=== PATIENT | female | born 1935 | race Caucasian/White ===

== ENCOUNTER 2016-09-14 10:26 | Emergency (ER) | payer MEDICARE, OTHER ==
[2016-09-14] MEDS ORDERED: Sodium Chloride 0.9% 10 ML Syringe FLUSH PRN (10:38)
--- NOTE | 2016-09-14 11:06 | EDM.PDOC ---
ED HPI NEURO - General Chief Complaint: Neurological Problem Stated Complaint: STROKE Time Seen by Provider: 09/14/16 10:42 Source: Reports: Patient, EMS History Limitations: Reports: No limitations - History of Present Illness INITIAL COMMENTS - FREE TEXT/NARRATIVE: 81 years old w f with a history of HTN came to the ed due to 5 min loss of vision of the r side of her left eye. Pt does not smoke or drink, takes ASA daily. Event was not witnessed. No headache, no N/V/D or any other acute medical issues at this time. Symptom Onset Date: 09/14/16 Symptom Onset Time: 09:30 Timing/Duration: Reports: Hour(s): Location (Neuro Complaint): Reports: face Quality (Neuro Complaint): Reports: altered speech, other (loss of vision right side left eye. ) Improves with: Reports: None Worsens with: Reports: None Associated symptoms: Reports: denies other symptoms - Related Data Allergies/ADRs: Allergies Allergy/AdvReac Type Severity Reaction Status Date / Time erythromycin base Allergy Cannot Verified 09/14/16 10:38 Remember venom-honey bee Allergy Cannot Verified 09/14/16 10:38 [bee venom (honey bee)] Remember Home Meds: Home Meds Lisinopril/Hydrochlorothiazide [Lisinopril-Hctz 20-12.5 mg Tab] 1 tab PO DAILY 10/11/14 [History] Metoprolol Tartrate [Lopressor] 12.5 mg PO BID 10/11/14 [History] Aspirin 325 mg PO DAILY 10/31/15 [History] Calcium Carbonate/Vitamin D3 [Calcium 600 + Vit D 200] 1 each PO DAILY 10/31/15 [History] Cholecalciferol (Vitamin D3) [Vitamin D3] 400 unit PO DAILY 10/31/15 [History] Folic Acid 1 mg PO DAILY 10/31/15 [History] Gluc HCl/Csa/[place] Hy/Hyalur Ac [Glucosamine Chondroitin] 1 each PO DAILY [History] Vit C/Vit E Ac/Lut/Mineral 1 [Prosight with Lutein] 1 each PO DAILY 10/31/15 [ History] Zinc 50 mg PO DAILY 10/31/15 [History] Ascorbate Calcium [Vitamin C] 500 mg PO DAILY 09/14/16 [History] Docusate Sodium [Colace] 100 mg PO BID 09/14/16 [History] Gabapentin [Neurontin] 100 mg PO BID 09/14/16 [History] methylPREDNISolone [Medrol] 4 mg PO ASDIRECTED 09/14/16 [History] Past Medical History HEENT History: Reports: Impaired vision Cardiovascular History: Reports: Hypertension 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: Musculoskeletal History: Reports: Other (see below) Other Musculoskeletal History: spinal stenosis Social & Family History - Tobacco Use Smoking Status *Q: Former Smoker Second Hand Smoke Exposure: No - Caffeine Use Caffeine Use: Reports: None - Alcohol Use Days Per Week of Alcohol Use: 1 Number of Drinks Per Day: 1 Total Drinks Per Week: 1 - Recreational Drug Use Recreational Drug Use: No ED ROS GENERAL - Review of Systems Review Of Systems: See Below Constitutional: Reports: no symptoms HEENT: Reports: Vision change (left eye for 5 minutes) Respiratory: Reports: No Symptoms Cardiovascular: Reports: No symptoms Endocrine: Reports: no symptoms GI/Abdominal: Reports: No symptoms : Reports: no symptoms Musculoskeletal: Reports: no symptoms Skin: Reports: no symptoms Neurological: Reports: Trouble Speaking (for 5 minutes) Psychiatric: Reports: No symptoms Hematologic/Lymphatic: Reports: no symptoms Immunologic: Reports: no symptoms ED EXAM, NEURO - Physical Exam Exam: See Below Exam Limited By: No limitations General Appearance: alert, WD/WN, no apparent distress Eye Exam: bilateral eye: normal fundi, normal inspection Ears: normal external exam Nose: normal inspection, normal mucosa Throat/Mouth: Normal inspection, Normal lips Head Exam: atraumatic, normocephalic Neck: normal inspection, supple, non-tender Respiratory/Chest: no respiratory distress, lungs clear, normal breath sounds Cardiovascular: normal peripheral pulses, regular rate, rhythm, no edema, no gallop GI/Abdominal: normal bowel sounds, soft, non tender (Female) Exam: Deferred Rectal (Female) Exam: Deferred Neurological: alert, normal mood/affect, normal dorsiflexion, CN II-XII intact, normal plantar flexion, normal gait, no motor/sensory deficits, oriented x 3 Back Exam: normal inspection, full range of motion Extremities: normal inspection, normal range of motion, non-tender, no pedal edema Psychiatric: normal affect, normal mood Skin Exam: Warm, Dry, Intact, Normal color, No rash EKG INTERPRETATION EKG Date: 09/14/16 Time: 10:55 Rate (beats/min): 60 [place]: normal P-wave: present QRS: normal ST-T: normal QT: normal Comparison: NA - no prior EKG Course - Vital Signs Text/Narrative:: 81 years old w f with a history of HTN came to the ed due to 5 min loss of vision of the r side of her left eye. Pt does not smoke or drink, takes ASA daily. Event was not witnessed. No headache, no N/V/D or any other acute medical issues at this time. PE: no neurological symptoms Imaging: US carotis (no tech available) CT head: Gen brain atrophy MR linda and neck: neg for CVA, poor study of MRA neck, recommends Carotic US Labs: CBC wnl, BMP: CD 22 KAVON/CR 21,4 Glc 158 INR: NL Impression: TIA Reexam: Pt was doing fine here in the ed, was in her usual state of health Plan: D/C with instructions Last Recorded V/S: Last Vital Signs Temp 36.6 C 09/14/16 16:54 Pulse 76 09/14/16 15:00 Resp 16 09/14/16 16:54 BP 154/48 H 09/14/16 16:54 Pulse Ox 97 09/14/16 16:54 - Orders/Labs/Meds Orders: Active Orders 24 hr Category Date Time Status Ang Neck w Cont [MR] Stat Exams 09/14/16 11:42 Taken Brain w wo Cont [MR] Stat Exams 09/14/16 11:42 Taken Head wo Cont [CT] Stat Exams 09/14/16 10:46 Taken Gadobutrol [Gadavist] Med 09/14/16 13:15 Active 10 ml IV . DIRECTED Sodium Chloride 0.9% [Saline Flush] Med 09/14/16 10:38 Active 10 ml FLUSH ASDIRECTED PRN Saline Lock Insert [OM.PC] Routine Oth 09/14/16 10:38 Ordered EKG 12 Lead [EK] Routine Ther 09/14/16 10:47 Ordered Medication Orders Gadobutrol (Gadavist) 10 ml IV . DIRECTED NAKIA Last Admin: 09/14/16 14:22 Dose: 10 ml Sodium Chloride (Saline Flush) 10 ml FLUSH ASDIRECTED PRN PRN Reason: Keep Vein Open Last Admin: 09/14/16 10:39 Dose: 10 ml Labs: Laboratory Tests 09/14/16 09/14/16 09/14/16 Range/Units 10:55 10:55 10:55 WBC 7.9 (4.5-12.0) X10-3/uL RBC 4.35 (3.23-5.20) x10(6)uL Hgb 12.6 (11.5-15.5) g/dL Hct 38.3 (30.0-51.3) % MCV 88.0 (80-96) fL MCH 28.9 (27.7-33.6) pg MCHC 32.9 (32.2-35.4) g/dL RDW 13.9 (11.5-15.5) % Plt Count 223 (125-369) X10(3)uL MPV 9.8 (7.4-10.4) fL Neut % (Auto) 70.7 (46-82) % Lymph % (Auto) 18.7 (13-37) % [place] % (Auto) 7.0 (4-12) % Eos % (Auto) 3 (1.0-5.0) % Baso % (Auto) 1 (0-2) % Neut # (Auto) 5.6 (1.6-8.3) # Lymph # (Auto) 1.5 (0.6-5.0) # [place] # (Auto) 0.6 (0.0-1.3) # Eos # (Auto) 0.2 (0.0-0.8) # Baso # (Auto) 0.0 (0.0-0.2) # PT 10.4 (8.7-11.1) INR 1.03 (0.89-1.13) Sodium 136 (135-145) mmol/L Potassium 3.8 (3.5-5.3) mmol/L Chloride 105 (100-110) mmol/L Carbon Dioxide 22 L (23-29) mmol/L BUN 19 (8-23) mg/dL Creatinine 0.9 (0.6-1.3) mg/dL Est Cr Clr Drug Dosing TNP Estimated GFR (MDRD) > 60 (>60) BUN/Creatinine Ratio 21.1 H (9-20) Glucose 158 H (80-116) mg/dL Calcium 9.0 (8.6-10.2) mg/dL Meds: Medications Generic Name Dose Route Start Last Admin Trade Name Freq PRN Reason Stop Dose Admin Gadobutrol 10 ml 09/14/16 13:15 09/14/16 14:22 Gadavist IV 10 ml . DIRECTED NAKIA Administration Sodium Chloride 10 ml 09/14/16 10:38 09/14/16 10:39 Saline Flush FLUSH 10 ml ASDIRECTED PRN Administration Keep Vein Open Departure - Departure Time of Disposition: 17:01 Disposition: Home, Self-Care 01 Condition: good Clinical Impression: TIA (transient ischemic attack) Qualifiers: Transient cerebral ischemia type: amaurosis fugax Qualified Code(s): G45.3 - Amaurosis fugax Forms: ED Department Discharge Additional Instructions: Please take your meds as recommended, please follow up with US at 11.30 am for a carotic US. Please follow up with your PMD, please come back of your symptoms get worse acutely - My Orders Last 24 Hours: My Active Orders 09/14/16 10:38 Sodium Chloride 0.9% [Saline Flush] 10 ml FLUSH ASDIRECTED PRN Saline Lock Insert [OM.PC] Routine 09/14/16 10:46 Head wo Cont [CT] Stat 09/14/16 10:47 EKG 12 Lead [EK] Routine 09/14/16 11:42 Ang Neck w Cont [MR] Stat Brain w wo Cont [MR] Stat 09/14/16 13:15 Gadobutrol [Gadavist] 10 ml IV . DIRECTED - Assessment/Plan Last 24 Hours: My Active Orders 09/14/16 10:38 Sodium Chloride 0.9% [Saline Flush] 10 ml FLUSH ASDIRECTED PRN Saline Lock Insert [OM.PC] Routine 09/14/16 10:46 Head wo Cont [CT] Stat 09/14/16 10:47 EKG 12 Lead [EK] Routine 09/14/16 11:42 Ang Neck w Cont [MR] Stat Brain w wo Cont [MR] Stat 09/14/16 13:15 Gadobutrol [Gadavist] 10 ml IV . DIRECTED
[2016-09-14] MEDS ORDERED: Gadobutrol 10 mMOL/10 ML SDV IV SCH (13:15)
[2016-09-14 16:55] VITALS: BP 154/48
== END 2016-09-14 17:09 | disposition home or self-care (01) ==
LOC: FB.ED 10:26
DX: G45.3 Amaurosis fugax (principal); I10 Essential (primary) hypertension; Z88.1 Allergy status to other antibiotic agents; Z91.030 Bee allergy status; Z79.82 Long term (current) use of aspirin; Z79.899 Other long term (current) drug therapy; Z87.891 Personal history of nicotine dependence
CPT/HCPCS: 36415; 70450; 70548; 70553; 80048; 85025; 85610; 93005; 99285; A9585; J7050

== ENCOUNTER 2016-11-13 08:16 | Emergency (ER) | payer MEDICARE ==
--- NOTE | 2016-11-13 09:30 | EDM.PDOC ---
ED HPI GENERAL MEDICAL PROBLEM - General Stated Complaint: LOWER LEFT QUAD PAIN Time Seen by Provider: 11/13/16 08:16 Source of Information: Reports: Patient History Limitations: Reports: No Limitations - History of Present Illness INITIAL COMMENTS - FREE TEXT/NARRATIVE: 81 years old w f came to the ed by PC due to acute onset of left lower abdominal pain. Pt had diverticulitis in the past. Denies dysuria. No trauma. No other acute medical issues. No blood in stool. Onset Date: 11/12/16 Onset Time: 06:00 Duration: Hour(s):, Getting Worse, Intermittent Location: Reports: Abdomen (LLQ ) Quality: Reports: Burning, Dull, Stabbing Severity: Moderate Improves with: Reports: Rest Worsens with: Reports: Movement - Related Data Allergies Allergy/AdvReac Type Severity Reaction Status Date / Time erythromycin base Allergy Cannot Verified 11/13/16 11:05 Remember venom-honey bee Allergy Cannot Verified 11/13/16 11:05 [bee venom (honey bee)] Remember Home Meds: Home Meds Ciprofloxacin HCl [Cipro] 500 mg PO BID #20 tablet 11/13/16 [Rx] Phenazopyridine HCl [Pyridium] 200 mg PO Q8HR #9 tablet 11/13/16 [Rx] metroNIDAZOLE [Flagyl] 500 mg PO Q8H #30 tab 11/13/16 [Rx] Past Medical History HEENT History: Reports: Impaired Vision Cardiovascular History: Reports: Hypertension 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: Musculoskeletal History: Reports: Other (See Below) Other Musculoskeletal History: spinal stenosis Social & Family History - Tobacco Use Smoking Status *Q: Former Smoker Second Hand Smoke Exposure: No - Caffeine Use Caffeine Use: Reports: None - Alcohol Use Days Per Week of Alcohol Use: 1 Number of Drinks Per Day: 1 Total Drinks Per Week: 1 - Recreational Drug Use Recreational Drug Use: No ED ROS GENERAL - Review of Systems Review Of Systems: See Below Constitutional: Reports: No Symptoms HEENT: Reports: No Symptoms Respiratory: Reports: No Symptoms Cardiovascular: Reports: No Symptoms Endocrine: Reports: No Symptoms GI/Abdominal: Reports: Abdominal Pain (left lower abdomen) : Reports: No Symptoms Musculoskeletal: Reports: No Symptoms Skin: Reports: No Symptoms Neurological: Reports: No Symptoms Psychiatric: Reports: No Symptoms Hematologic/Lymphatic: Reports: No Symptoms Immunologic: Reports: No Symptoms ED EXAM GENERAL W FULL EYE - Physical Exam Exam: See Below Exam Limited By: No Limitations General Appearance: Alert, WD/WN, Mild Distress, Obese Eye Exam: Bilateral Eye: Normal Inspection Ears: Normal External Exam Nose: Normal Inspection Throat/Mouth: Normal Inspection, Normal Lips Head: Atraumatic, Normocephalic Neck: Normal Inspection, Supple, Non-Tender, Full Range of Motion Respiratory/Chest: No Respiratory Distress, Lungs Clear, Normal Breath Sounds, No Accessory Muscle Use, Chest Non-Tender Cardiovascular: Normal Peripheral Pulses, Regular Rate, Rhythm, No Edema GI/Abdominal: Guarding, Rebound, Tender (LLQ of abdomen) (Male) Exam: Deferred (Female) Exam: Deferred Rectal (Males) Exam: Deferred Rectal (Female) Exam: Deferred Back Exam: Normal Inspection, Full Range of Motion Extremities: Normal Inspection, Normal Range of Motion, Non-Tender Neurological: Alert, Oriented, CN II-XII Intact, Normal Cognition, Normal Gait Psychiatric: Normal Affect, Normal Mood Skin Exam: Warm, Dry, Intact, Normal Color, No Rash Lymphatic: No Adenopathy Course - Vital Signs Text/Narrative:: 81 years old w f came to the ed by PC due to acute onset of left lower abdominal pain. Pt had diverticulitis in the past. Denies dysuria. No trauma. No other acute medical issues. PE; LLQ abd.pain Imaging: Diverticulitis LabsL UTI with hematuria Impression: UTI, Diverticulitis Tx: Pyridium, Abx Rexam: improved Plan: D/C with instructions Last Recorded V/S: Last Vital Signs Temp 36.7 C 11/13/16 08:20 Pulse 65 11/13/16 08:20 Resp 18 11/13/16 08:20 BP 118/45 L 11/13/16 08:20 Pulse Ox 94 L 11/13/16 08:20 - Orders/Labs/Meds Orders: Active Orders 24 hr Category Date Time Status Abdomen Pelvis w Cont [CT] Stat Exams 11/13/16 09:20 Taken Labs: Laboratory Tests 11/13/16 11/13/16 11/13/16 Range/Units 09:35 09:35 09:35 WBC 16.4 H (4.5-12.0) X10-3/uL RBC 4.30 (3.23-5.20) x10(6)uL Hgb 12.6 (11.5-15.5) g/dL Hct 37.7 (30.0-51.3) % MCV 87.7 (80-96) fL MCH 29.3 (27.7-33.6) pg MCHC 33.4 (32.2-35.4) g/dL RDW 12.8 (11.5-15.5) % Plt Count 256 (125-369) X10(3)uL MPV 9.7 (7.4-10.4) fL Add Manual Diff Yes Neutrophils % (Manual) 81 (46-82) % Lymphocytes % (Manual) 14 (13-37) % Monocytes % (Manual) 4 (4-12) % Eosinophils % (Manual) 1 (0-5) % PT 10.9 (8.7-11.1) INR 1.08 (0.89-1.13) Sodium 137 (135-145) mmol/L Potassium 3.9 (3.5-5.3) mmol/L Chloride 104 (100-110) mmol/L Carbon Dioxide 23 (23-29) mmol/L BUN 22 (8-23) mg/dL Creatinine 1.1 (0.6-1.3) mg/dL Est Cr Clr Drug Dosing TNP Estimated GFR (MDRD) 48 L (>60) BUN/Creatinine Ratio 20.0 (9-20) Glucose 180 H (80-116) mg/dL Calcium 9.3 (8.6-10.2) mg/dL Urine Color (YELLOW) Urine Appearance (CLEAR) Urine pH (5.0-6.5) Ur Specific [place] (1.010-1.025) Urine Protein (NEGATIVE) mg/dL Urine Glucose (UA) (NEGATIVE) mg/dL Urine Ketones (NEGATIVE) mg/dL Urine Occult Blood (NEGATIVE) Urine Nitrite (NEGATIVE) Urine Bilirubin (NEGATIVE) Urine Urobilinogen (NEGATIVE) mg/dL Ur Leukocyte Esterase (NEGATIVE) Urine WBC (0) Ur Squamous Epith Cells (NS,R,O) Urine Bacteria (NS) Hyaline Casts (NS) 11/13/16 Range/Units 09:45 WBC (4.5-12.0) X10-3/uL RBC (3.23-5.20) x10(6)uL Hgb (11.5-15.5) g/dL Hct (30.0-51.3) % MCV (80-96) fL MCH (27.7-33.6) pg MCHC (32.2-35.4) g/dL RDW (11.5-15.5) % Plt Count (125-369) X10(3)uL MPV (7.4-10.4) fL Add Manual Diff Neutrophils % (Manual) (46-82) % Lymphocytes % (Manual) (13-37) % Monocytes % (Manual) (4-12) % Eosinophils % (Manual) (0-5) % PT (8.7-11.1) INR (0.89-1.13) Sodium (135-145) mmol/L Potassium (3.5-5.3) mmol/L Chloride (100-110) mmol/L Carbon Dioxide (23-29) mmol/L BUN (8-23) mg/dL Creatinine (0.6-1.3) mg/dL Est Cr Clr Drug Dosing Estimated GFR (MDRD) (>60) BUN/Creatinine Ratio (9-20) Glucose (80-116) mg/dL Calcium (8.6-10.2) mg/dL Urine Color Yellow (YELLOW) Urine Appearance Slightly cloudy (CLEAR) Urine pH 5.0 (5.0-6.5) Ur Specific [place] 1.025 (1.010-1.025) Urine Protein Trace (NEGATIVE) mg/dL Urine Glucose (UA) Normal (NEGATIVE) mg/dL Urine Ketones Negative (NEGATIVE) mg/dL Urine Occult Blood Negative (NEGATIVE) Urine Nitrite Negative (NEGATIVE) Urine Bilirubin Small H (NEGATIVE) Urine Urobilinogen 1 H (NEGATIVE) mg/dL Ur Leukocyte Esterase Large H (NEGATIVE) Urine WBC 20-30 H (0) Ur Squamous Epith Cells Few H (NS,R,O) Urine Bacteria Many H (NS) Hyaline Casts Few H (NS) Meds: Medications Discontinued Medications Generic Name Dose Route Start Last Admin Trade Name Freq PRN Reason Stop Dose Admin Ciprofloxacin 500 mg 11/13/16 11:05 11/13/16 11:10 Ciprofloxacin Hcl PO 11/13/16 11:06 500 mg ONETIME ONE Administration Iopamidol 100 ml 11/13/16 10:20 11/13/16 10:53 [id number] (76%) IV 11/13/16 10:21 99 ml . DIRECTED ONE Administration Phenazopyridine HCl 95 mg 11/13/16 11:15 11/13/16 11:10 Urinary Pain Relief PO 11/13/16 11:16 95 mg ONETIME ONE Administration Departure - Departure Time of Disposition: 11:13 Disposition: Home, Self-Care 01 Condition: good Clinical Impression: UTI (urinary tract infection) Qualifiers: Urinary tract infection type: acute cystitis Hematuria presence: with hematuria Qualified Code(s): N30.01 - Acute cystitis with hematuria Diverticulitis large intestine Qualifiers: Diverticulitis bleeding: without bleeding Diverticulitis complication: without perforation or abscess Qualified Code(s): K57.32 - Diverticulitis of large intestine without perforation or abscess without bleeding - Discharge Information Prescriptions: Phenazopyridine HCl [Pyridium] 200 mg PO Q8HR #9 tablet Ciprofloxacin HCl [Cipro] 500 mg PO BID #20 tablet metroNIDAZOLE [Flagyl] 500 mg PO Q8H #30 tab Instructions: Urinary Tract Infection, Adult, [id number], Urine Culture and Sensitivity Testing Referrals: Codey Grande MD [Primary Care Provider] - Additional Instructions: Please take the meds as recommended, please increase water intake. Please f/u, come back if your symptoms get worse acutely. Will call you for CT results. - My Orders Last 24 Hours: My Active Orders 11/13/16 09:20 Abdomen Pelvis w Cont [CT] Stat - Assessment/Plan Last 24 Hours: My Active Orders 11/13/16 09:20 Abdomen Pelvis w Cont [CT] Stat
[2016-11-13] MEDS ORDERED: Iopamidol 755 Mg/ML 100 ML Bottle IV ONE (10:20)
[2016-11-13] MEDS ORDERED: Ciprofloxacin 500 MG Tab PO ONE (11:05)
[2016-11-13] MEDS ORDERED: Phenazopyridine 95 MG Tab PO ONE (11:15)
[2016-11-13 15:09] VITALS: BP 126/41
== END 2016-11-13 11:20 | disposition home or self-care (01) ==
LOC: FB.ED 08:16
DX: N30.01 Acute cystitis with hematuria (principal); K57.32 Diverticulitis of large intestine without perforation or abscess without bleeding; H54.7 Unspecified visual loss; I10 Essential (primary) hypertension; Z87.891 Personal history of nicotine dependence; Z91.030 Bee allergy status; Z88.1 Allergy status to other antibiotic agents
CPT/HCPCS: 36415; 74177; 80048; 81001; 85025; 85610; 87086; 99284; A9270; Q9967

== ENCOUNTER 2016-11-20 09:04 | Emergency (ER) | payer MEDICARE ==
[2016-11-20] MEDS ORDERED: Ketorolac 30 MG/ML SDV IM ONE (09:47)
[2016-11-20 10:33] VITALS: BP 122/50
--- NOTE | 2016-11-20 12:50 | ER ---
DATE SEEN: 11/20/2016 HISTORY OF PRESENT ILLNESS: The patient is an 81-year-old female, who presents emergency room with bilateral leg pain and more specifically left foot pain. She started having left foot pain about 4:00 in the morning, woke her up from sleep, and it has continued to be painful. She has not taken anything for the pain and she was prescribed Tylenol with codeine this week for her chronic leg pain but again has not taken anything this morning. She has history of spinal stenosis and thought to be the cause of her leg pain. She denies any trauma, fall, or twist. She went to bed was fine and again the pain woke her up this morning. She can walk on it but this is more difficult with foot pain. The pain is localized to the midfoot to dorsum. She has some erythema there as well but no vidal swelling. She does not have a history of gout in the past. MEDICATIONS: Ciprofloxacin, clopidogrel, and Tylenol with codeine. ALLERGIES: Erythromycin, bee stings. PAST MEDICAL HISTORY: Concussion, TIA, UTI, diverticulitis, and spinal stenosis. REVIEW OF SYSTEMS: CONSTITUTIONAL: No nausea, vomiting, fevers, or chills. : No dysuria. PHYSICAL EXAMINATION: VITAL SIGNS: Temperature 36.6, pulse 64, blood pressure 158/44, respiratory rate 16, saturating 97% on room air. GENERAL: She is no apparent acute distress. EXTREMITIES: Full range of motion in her knees, foot, and ankle. Painful with plantar flexion. Maximal tenderness is at the midfoot. The Lisfranc joint is nontender, has some erythema, trace swelling. No pain in the plantar fascial area, no pain in the toes. Pulses are normal. Color is normal. EMERGENCY ROOM COURSE: The patient received Toradol 30 mg IM. ASSESSMENT: Left foot pain. PLAN: We will prescribe Naprosyn for her pain. It is unclear if this is rheumatological in nature but is either differential. No history of trauma or fall unlikely to be injury. She had some strain/sprain may be related to her spinal stenosis. We will start Naprosyn and have her follow up with primary physician. /[id number] SABRINA/ROSA
== END 2016-11-20 11:05 | disposition home or self-care (01) ==
LOC: FB.ED 09:04
DX: M79.672 Pain in left foot (principal); Z86.73 Personal history of transient ischemic attack (TIA), and cerebral infarction without residual deficits; Z87.440 Personal history of urinary (tract) infections; Z88.1 Allergy status to other antibiotic agents; Z91.030 Bee allergy status
CPT/HCPCS: 96372; 99283; J1885

== ENCOUNTER 2017-01-18 18:35 | Emergency (ER) | payer MEDICARE ==
[2017-01-18] MEDS ORDERED: Ketorolac 30 MG/ML SDV IM ONE (18:57)
--- NOTE | 2017-01-18 19:03 | EDM.PDOC ---
ED HPI GENERAL MEDICAL PROBLEM - General Chief Complaint: Back Pain or Injury Stated Complaint: BACK PAIN Time Seen by Provider: 01/18/17 18:50 Source of Information: Reports: Patient, RN History Limitations: Reports: No Limitations - History of Present Illness INITIAL COMMENTS - FREE TEXT/NARRATIVE: 81 yo female here with R flank area pain for about 2 hrs. Began abruptly. Pain is gone if she holds perfectly still, worse with movement. Deep breathing or coughing does not increase the pain. No rash. No recent injury or exertion. No hx of the same. Can not describe the pain. No cough or fever. No hematuria. Has a hx of spinal stenosis. Onset: Today Onset Date: 01/18/17 Onset Time: 17:00 Duration: Hour(s): (2 hrs.) Location: Reports: Back (R side.) Quality: Reports: Other (unable to describe.) Severity: Moderate Improves with: Reports: Rest Worsens with: Reports: Movement Context: Reports: Other (unknown) Associated Symptoms: Reports: No Other Symptoms Treatments DIRECTOR LEARNING AND DEVELOPMENT: Reports: Other (see below) (none) - Related Data Allergies Allergy/AdvReac Type Severity Reaction Status Date / Time erythromycin base Allergy Cannot Verified 01/18/17 19:09 Remember venom-honey bee Allergy Cannot Verified 01/18/17 19:09 [bee venom (honey bee)] Remember Home Meds: Home Meds Lisinopril/Hydrochlorothiazide [Lisinopril-Hctz 20-12.5 mg Tab] 1 tab PO DAILY 11/20/16 [History] Metoprolol Tartrate 1 mg PO DAILY 11/20/16 [History] Acetaminophen/HYDROcodone [[place] 325-5 MG] 1 - 2 tab PO Q4H PRN #20 tab [Rx] Ciprofloxacin HCl [Cipro] 250 mg PO BID #13 tablet 01/18/17 [Rx] Past Medical History - Past Health History Medical/Surgical History: Denies Medical/Surgical History HEENT History: Reports: Impaired Vision Cardiovascular History: Reports: Hypertension [employer] DIRECTOR History: Reports: Musculoskeletal History: Reports: Other (See Below) Other Musculoskeletal History: spinal stenosis Social & Family History - Tobacco Use Smoking Status *Q: Never Smoker Used Tobacco, but Quit: Yes Month Tobacco Last Used: 0 Second Hand Smoke Exposure: No - Caffeine Use Caffeine Use: Reports: Coffee, Tea Caffeine Use Comment: states deccafienated - Alcohol Use Days Per Week of Alcohol Use: 1 Number of Drinks Per Day: 1 Total Drinks Per Week: 1 - Recreational Drug Use Recreational Drug Use: No ED ROS GENERAL - Review of Systems Review Of Systems: See Below Constitutional: Reports: No Symptoms HEENT: Reports: No Symptoms Respiratory: Denies: Shortness of Breath, Wheezing, Pleuritic Chest Pain, Cough , Sputum, Hemoptysis Cardiovascular: Reports: No Symptoms GI/Abdominal: Reports: No Symptoms : Reports: No Symptoms, Flank Pain (R side). Denies: Hematuria Musculoskeletal: Reports: Back Pain (R mid back) Skin: Reports: No Symptoms Neurological: Reports: No Symptoms ED EXAM, UPPER BACK/NECK PAIN - Physical Exam Exam: See Below Exam Limited By: No Limitations General Appearance: Alert, WD/WN, No Apparent Distress Eye Exam: Bilateral Eye: Normal Inspection Ears Exam: Normal External Exam, Normal Canal, Hearing Grossly Normal Nose Exam: Normal Inspection, Normal Mucousa, No Blood Throat/Mouth Exam: Normal Inspection, Normal Lips, Normal Oropharynx, Normal Voice, No Airway Compromise Head Exam: Atraumatic, Normocephalic GI/Abdominal: Soft, Non-Tender, No Distention Back Exam: Normal Inspection, Decreased Range of Motion (due to pain. ). No: CVA Tenderness (R), CVA Tenderness (L), Muscle Spasm, Paraspinal Tenderness, Vertebral Tenderness Extremities: Normal Inspection, Normal Range of Motion, Non-Tender, No Pedal Edema Neurologic: No Motor/Sensory Deficits, Alert, Normal Mood/Affect, Oriented x 3 Psychiatric: Normal Affect, Normal Mood Skin Exam: Normal Color, Warm/Dry Lymphatic: No Adenopathy Course - Vital Signs Text/Narrative:: Toradol 30 mg IM, Cipro 500 mg po Last Recorded V/S: Last Vital Signs Temp 37.0 C 01/18/17 19:11 Pulse 86 01/18/17 19:11 Resp 13 01/18/17 19:11 BP 120/76 01/18/17 19:11 Pulse Ox 100 01/18/17 19:11 - Orders/Labs/Meds Orders: Active Orders 24 hr Category Date Time Status CULTURE URINE [RM] Stat Lab 01/18/17 19:31 Ordered Labs: Laboratory Tests 01/18/17 Range/Units 19:26 Urine Color Yellow (YELLOW) Urine Appearance Clear (CLEAR) Urine pH 5.0 (5.0-6.5) Ur Specific [place] 1.020 (1.010-1.025) Urine Protein Negative (NEGATIVE) mg/dL Urine Glucose (UA) Normal (NEGATIVE) mg/dL Urine Ketones Negative (NEGATIVE) mg/dL Urine Occult Blood Negative (NEGATIVE) Urine Nitrite Negative (NEGATIVE) Urine Bilirubin Negative (NEGATIVE) Urine Urobilinogen Normal (NEGATIVE) mg/dL Ur Leukocyte Esterase Large H (NEGATIVE) Meds: Medications Discontinued Medications Generic Name Dose Route Start Last Admin Trade Name Freq PRN Reason Stop Dose Admin Ciprofloxacin 500 mg 01/18/17 19:32 Ciprofloxacin Hcl PO 01/18/17 19:33 ONETIME ONE Ketorolac Tromethamine 30 mg 01/18/17 18:57 01/18/17 19:04 Toradol IM 01/18/17 18:58 30 mg ONETIME ONE Administration Departure - Departure Time of Disposition: 19:45 Disposition: Home, Self-Care 01 Condition: Fair Clinical Impression: UTI (urinary tract infection) Qualifiers: Urinary tract infection type: site unspecified Hematuria presence: without hematuria Qualified Code(s): N39.0 - Urinary tract infection, site not specified Back pain Qualifiers: Back pain location: thoracic back pain Chronicity: acute Back pain laterality: right Qualified Code(s): M54.6 - Pain in thoracic spine - Discharge Information Prescriptions: Acetaminophen/HYDROcodone [[place] 325-5 MG] 1 - 2 tab PO Q4H PRN #20 tab PRN Reason: Pain Ciprofloxacin HCl [Cipro] 250 mg PO BID #13 tablet Referrals: Codey Grande MD [Primary Care Provider] - Forms: ED Department Discharge Care Plan Goals: Take [place] as directed for pain relief. Take ibuprofen 400 mg every 6 hrs with food as needed. Take Ciprofloxacin every 12 hrs until gone. Drink ample fluids. Rest. Recheck in the clinic before the weekend, call for an appt. - My Orders Last 24 Hours: My Active Orders 01/18/17 19:31 CULTURE URINE [RM] Stat - Assessment/Plan Last 24 Hours: My Active Orders 01/18/17 19:31 CULTURE URINE [RM] Stat
[2017-01-18 19:16] VITALS: BP 120/76
[2017-01-18] MEDS ORDERED: Ciprofloxacin 500 MG Tab PO ONE (19:32)
[2017-01-18] MEDS ORDERED: Acetaminophen/HYDROcodone 325-5 MG Tab PO ONE (19:37)
== END 2017-01-18 19:40 | disposition home or self-care (01) ==
LOC: FB.ED 18:35
DX: N39.0 Urinary tract infection, site not specified (principal); M54.6 Pain in thoracic spine; I10 Essential (primary) hypertension; Z88.1 Allergy status to other antibiotic agents; Z91.030 Bee allergy status; Z79.899 Other long term (current) drug therapy
CPT/HCPCS: 81003; 87086; 96372; 99283; A9270; J1885

== ENCOUNTER 2017-06-16 10:06 | Inpatient (IN) | payer MEDICARE ==
[2017-06-16] MEDS ORDERED: Zolpidem 5 MG Tab PO PRN (12:49)
[2017-06-16] MEDS ORDERED: Acetaminophen 325 MG Tab PO PRN (12:49)
--- NOTE | 2017-06-16 13:07 | PCM.HP ---
H&P History of Present Illness - General Date of Service: 06/16/17 Admit Problem/Dx: Admission Diagnosis/Problem Admission Diagnosis/Problem Pneumonia - History of Present Illness Initial Comments - Free Text/Narative: 8-year-old female admitted directly from clinic secondary to increasing shortness of breath, wheezing, persistent cough over the last week. She has not been able to cough anything up. Hard take deep breath. Hasn't noticed any fevers or chills. No headache nasal congestion or sore throat. No epistaxis. No nausea or vomiting. She admits to decreased appetite. She only has lower bilateral chest pain with coughing. Otherwise no chest pain or pressure anterior or posterior. Denies shoulder or neck or jaw pain. She admits to being easily fatigued over the last few days. She has not noted increased lower extremity edema. Denies heart palpitations, syncope or lightheadedness/ dizziness upon standing. She denies any abdominal pain, constipation or diarrhea. Denies any falls or trauma. She denies unusual bruising, joint swelling redness or tenderness, increased myalgias (does have chronic low back pain), tremors or confusion. No recent medication changes or hospitalizations. Denies ill contacts or travel outside the [place] within the last 30 days. Comorbidities have been reviewed and are otherwise stable. - Related Data Allergies/Adverse Reactions: Allergies Allergy/AdvReac Type Severity Reaction Status Date / Time Macrolide Antibiotics Allergy Unknown Cannot Verified 06/16/17 11:05 Remember erythromycin base Allergy Cannot Verified 01/18/17 19:09 Remember venom-honey bee Allergy Cannot Verified 01/18/17 19:09 [bee venom (honey bee)] Remember Home Medications: Home Meds Lisinopril/Hydrochlorothiazide [Lisinopril-Hctz 20-12.5 mg Tab] 1 tab PO DAILY 11/20/16 [History] Gabapentin [Neurontin] 300 mg PO TID 06/16/17 [History] Metoprolol Tartrate 12.5 mg PO BID 06/16/17 [History] Past Medical History - Past Health History Medical/Surgical History: Denies Medical/Surgical History HEENT History: Reports: Impaired Vision Cardiovascular History: Reports: Hypertension 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: Musculoskeletal History: Reports: Other (See Below) Other Musculoskeletal History: spinal stenosis - Infectious Disease History Infectious Disease History: Reports: Measles Social & Family History - Family History Family Medical History: Noncontributory - Tobacco Use Smoking Status *Q: Never Smoker Used Tobacco, but Quit: Yes Month Tobacco Last Used: 0 Second Hand Smoke Exposure: No - Caffeine Use Caffeine Use: Reports: Coffee Other Caffeine Use: 1 cup coffee Caffeine Use Comment: states deccafienated - Alcohol Use Days Per Week of Alcohol Use: 1 Number of Drinks Per Day: 1 Total Drinks Per Week: 1 - Recreational Drug Use Recreational Drug Use: No H&P Review of Systems - Review of Systems: Review Of Systems: ROS reveals no pertinent complaints other than HPI. Exam - Exam Exam: See Below - Vital Signs Vital Signs: Last Vital Signs Temp 98.7 F 06/16/17 10:20 Pulse 83 06/16/17 10:20 Resp 24 H 06/16/17 10:20 BP 124/50 L 06/16/17 10:20 Pulse Ox 83 L RA 06/16/17 10:26 Weight: 91.716 kg - Exam Quality Assessment: Supplemental Oxygen General: Alert, Oriented, Cooperative, Mild Distress (Short respiratory phase) HEENT: Conjunctiva Clear, Nares Patent, Posterior Pharynx Clear, Glasses. No: Rhinitis Neck: Supple, Trachea Midline. No: Lymphadenopathy, JVD Lungs: Decreased Breath Sounds, Crackles (Crackles bilateral lower bases. Coarse. No rhonchi. No stridor. She does have minimal expiratory wheezes anterior.) Cardiovascular: Regular Rate, Regular Rhythm, Normal S1, Normal S2 GI/Abdominal Exam: Normal Bowel Sounds, Soft, Non-Tender Extremities: Non-Tender, Normal Capillary Refill, Pedal Edema. No: Joint Swelling, Burak's Sign, Leg Pain, Increased Warmth Skin: Warm, Dry. No: Rash, Petechia, Ecchymosis Neurological: Normal Speech. No: Focal Deficit Psychiatric: Normal Affect, Normal Mood. No: Anxious - Patient Data Lab Results Last 24 hrs: Laboratory Results - last 24 hr 06/16/17 06/16/17 Range/Units 11:50 11:50 WBC 11.3 (4.5-12.0) X10-3/uL RBC 4.22 (3.23-5.20) x10(6)uL Hgb 11.8 (11.5-15.5) g/dL Hct 34.6 (30.0-51.3) % MCV 82.0 (80-96) fL MCH 28.0 (27.7-33.6) pg MCHC 34.1 (32.2-35.4) g/dL RDW 14.4 (11.5-15.5) % Plt Count 289 (125-369) X10(3)uL MPV 9.2 (7.4-10.4) fL Neut % (Auto) 79.6 (46-82) % Lymph % (Auto) 8.7 L (13-37) % [place] % (Auto) 8.1 (4-12) % Eos % (Auto) 3 (1.0-5.0) % Baso % (Auto) 1 (0-2) % Neut # (Auto) 8.9 H (1.6-8.3) # Lymph # (Auto) 1.0 (0.6-5.0) # [place] # (Auto) 0.9 (0.0-1.3) # Eos # (Auto) 0.4 (0.0-0.8) # Baso # (Auto) 0.1 (0.0-0.2) # Sodium 142 (135-145) mmol/L Potassium 3.8 (3.5-5.3) mmol/L Chloride 105 (100-110) mmol/L Carbon Dioxide 26 (21-32) mmol/L BUN 21 H (7-18) mg/dL Creatinine 1.2 H (0.55-1.02) mg/dL Est Cr Clr Drug Dosing 32.52 mL/min Estimated GFR (MDRD) 43 L (>60) BUN/Creatinine Ratio 17.5 (9-20) Glucose 108 (80-116) mg/dL Calcium 9.8 (8.6-10.2) mg/dL Total Bilirubin 0.6 (0.1-1.3) mg/dL AST 27 H (5-25) IU/L ALT 23 (12-36) U/L Alkaline Phosphatase 105 (56-112) IU/L Total Protein 7.4 (6.0-8.0) g/dL Albumin 3.1 L (3.2-4.6) g/dL Globulin 4.3 g/dL Albumin/Globulin Ratio 0.7 Result Diagrams: 06/17/17 07:00 06/17/17 07:00 *Q Meaningful Use (ADM) - VTE *Q VTE Criteria *Q: - Stroke *Q Stroke Criteria *Q: - AMI *Q AMI Criteria *Q: - Problem List (1) Respiratory distress, acute SNOMED Code(s): 661919641 ICD Code: R06.03 - ACUTE RESPIRATORY DISTRESS Status: Acute Current Visit : Yes (2) Pneumonia SNOMED Code(s): 587385534 ICD Code: J18.9 - PNEUMONIA, UNSPECIFIED ORGANISM Status: Acute Current Visit: Yes Qualifiers: Laterality: bilateral Lung location: lower lobe of lung (3) Dehydration, mild SNOMED Code(s): 2831810745508 ICD Code: E86.0 - DEHYDRATION Status: Acute Current Visit: Yes (4) Renal insufficiency SNOMED Code(s): 719469625 ICD Code: N28.9 - DISORDER OF KIDNEY AND URETER, UNSPECIFIED Status: Acute Current Visit: Yes (5) Complaint of debility and malaise SNOMED Code(s): 469034292 ICD Code: R53.81 - OTHER MALAISE Status: Acute Current Visit: Yes (6) Back pain SNOMED Code(s): 195990346 ICD Code: M54.9 - DORSALGIA, UNSPECIFIED Status: Chronic Current Visit: Yes Qualifiers: Back pain location: low back pain Problem List Initiated/Reviewed/Updated: Yes Orders Last 24hrs: Active Orders 24 hr Category Date Time Status Admission Status [Patient Status] [ADT] Routine ADT 06/16/17 10:11 Active Ambulate [RC] QID Care 06/16/17 12:49 Ordered Height and Weight [RC] DAILY Care 06/16/17 12:49 Ordered Notify Provider Vital Signs [RC] ASDIRECTED Care 06/16/17 12:51 Ordered Oxygen Therapy [RC] PRN Care 06/16/17 12:49 Ordered Pneumonia Education [RC] DAILY Care 06/16/17 12:49 Ordered Pulse Oximetry [RC] PRN Care 06/16/17 12:51 Ordered RT Aerosol Therapy [RC] ASDIRECTED Care 06/16/17 12:57 Ordered RT Incentive Spirometry [RC] Q4HR Care 06/16/17 12:49 Ordered Up With Assistance [RC] ASDIRECTED Care 06/16/17 12:49 Ordered VTE/DVT Education [RC] Per Unit Routine Care 06/16/17 12:49 Ordered Vital Signs [RC] Q4H Care 06/16/17 12:49 Ordered Heart Healthy Diet [DIET] Diet 06/16/17 Breakfast Ordered ABG [BLOOD GAS ARTERIAL] [BG] Routine Lab 06/16/17 13:06 Ordered BASIC METABOLIC PANEL,BMP [CHEM] AM Lab 06/17/17 05:11 Ordered CBC WITH AUTO DIFF [HEME] AM Lab 06/17/17 05:11 Ordered CULTURE BLOOD [BC] Routine Lab 06/16/17 11:45 Received CULTURE BLOOD [BC] Routine Lab 06/16/17 11:50 Received CULTURE SPUTUM + SMEAR [RM] Stat Lab 06/16/17 12:49 Uncollected INFLUENZA A+B AG SCREEN [RM] Routine Lab 06/16/17 12:49 Uncollected Acetaminophen [Tylenol] Med 06/16/17 12:49 Ordered 650 mg PO Q4H PRN Albuterol/Ipratropium [DuoNeb 3.0-0.5 MG/3 ML] Med 06/16/17 16:00 Ordered 3 ml NEB QIDRT Enoxaparin [Lovenox] Med 06/16/17 13:00 Ordered 30 mg SUBCUT Q24H Gabapentin [Neurontin] Med 06/16/17 14:00 Ordered 300 mg PO TID Hydrochlorothiazide/Lisinopril [Lisinopril/HCTZ 20-12.5 Med 06/16/17 13:00 Ordered MG] 1 tab PO DAILY Levofloxacin/Dextrose 5%-Water [Levaquin in D5W 750 MG/ Med 06/16/17 13:00 Ordered 150 ML] 750 mg Premix Bag 1 bag IV Q48H Metoprolol Tartrate [Lopressor] Med 06/16/17 13:00 Ordered 12.5 mg PO BID Pantoprazole [ProTONIX IV] Med 06/16/17 13:00 Ordered 40 mg IVPUSH DAILY Sodium Chloride 0.9% [Saline Flush] Med 06/16/17 12:49 Ordered 10 ml FLUSH ASDIRECTED PRN Zolpidem [Ambien] Med 06/16/17 12:49 Ordered 5 mg PO BEDTIME PRN Blood Culture x2 Reflex Set [OM.PC] Urgent Oth 06/16/17 12:49 Ordered Give supplemental Oxygen PRN [COMM] Routine Oth 06/16/17 12:49 Ordered Saline Lock Insert [OM.PC] Routine Oth 06/16/17 12:49 Ordered Resuscitation Status Routine Resus Stat 06/16/17 12:49 Ordered Medication Orders Acetaminophen (Tylenol) 650 mg PO Q4H PRN PRN Reason: Pain (Mild 1-3)/fever Albuterol/Ipratropium (Duoneb 3.0-0.5 Mg/3 Ml) 3 ml NEB QIDRT NAKIA Enoxaparin Sodium (Lovenox) 30 mg SUBCUT Q24H NAKIA Gabapentin (Neurontin) 300 mg PO TID NAKIA Lisinopril/HCTZ (Lisinopril/Hctz 20-12.5 Mg) 1 tab PO DAILY NAKIA Levofloxacin/Dextrose 750 mg/ (Premix) 150 mls @ 100 mls/hr IV Q48H NAKIA Stop: 06/24/17 14:29 Metoprolol Tartrate (Lopressor) 12.5 mg PO BID NAKIA Pantoprazole Sodium (Protonix Iv) 40 mg IVPUSH Q24H [facility] Sodium Chloride (Saline Flush) 10 ml FLUSH ASDIRECTED PRN PRN Reason: Keep Vein Open Zolpidem Tartrate (Ambien) 5 mg PO BEDTIME PRN PRN Reason: Sleep Assessment/Plan Comment:: We'll admit for bilateral lower lobe pneumonia with respiratory distress hypoxia. Will get ABGs. Start IV Levaquin at renal dosing. Respiratory therapy with DuoNeb and albuterol when necessary. Incentive spirometry to begin every 2 hours while awake. CBC is positive for elevated monocytes otherwise differential normal. Will get influenza swabs. Sputum culture if able. Antitussives. Cultures pending. However up as tolerated. Monitor weight. And follow clinically. Comorbidities have been reviewed and will continue to be treated accordingly any changes in medications or dosing will be documented if needed. All questions were answered, she is comfortable with plan of care. Anticipate discharge in 48-72 hours pending improvement is anticipated.
[2017-06-16] MEDS ORDERED: D5 1/2 NS w/ 20 mEq/L KCl 1,000 ML IV SCH (13:15)
[2017-06-16] MEDS: Levofloxacin/Dextrose 5%-Water 750 MG in Premix Bag 1 BAG IV SCH (13:26)
[2017-06-16] MEDS: Hydrochlorothiazide/Lisinopril 12.5-20 MG Tab PO SCH (13:27)
[2017-06-16] MEDS: Metoprolol Tartrate 25 MG Tab PO SCH ×2 (13:27→21:19)
[2017-06-16] MEDS: Pantoprazole 40 MG Vial IVPUSH SCH (13:28)
[2017-06-16] MEDS: Enoxaparin 40 MG/0.4 ML Syringe SUBCUT SCH (13:32)
[2017-06-16] MEDS: Sodium Chloride 0.9% 10 ML Syringe FLUSH PRN (13:34)
[2017-06-16] MEDS: Albuterol/Ipratropium 3.0-0.5 MG/3 ML Neb Soln NEB SCH ×2 (15:17→21:19)
[2017-06-16] MEDS: Gabapentin 300 MG Cap PO SCH ×2 (15:24→21:20)
[2017-06-16] MEDS ORDERED: Benzonatate 100 MG Cap PO PRN (15:31)
[2017-06-16] MEDS: Benzonatate 100 MG Cap PO SCH (21:18)
[2017-06-17] MEDS: Albuterol/Ipratropium 3.0-0.5 MG/3 ML Neb Soln NEB SCH ×4 (07:20→20:34)
[2017-06-17] MEDS: Hydrochlorothiazide/Lisinopril 12.5-20 MG Tab PO SCH (08:26)
[2017-06-17] MEDS: Metoprolol Tartrate 25 MG Tab PO SCH ×2 (08:26→20:39)
[2017-06-17] MEDS: Gabapentin 300 MG Cap PO SCH ×3 (08:27→20:40)
[2017-06-17] MEDS: Benzonatate 100 MG Cap PO SCH ×2 (08:28→20:40)
[2017-06-17] MEDS ORDERED: methylPREDNISolone Sodium Succinate 125 MG/2 ML SDV IV ONE (09:28)
--- NOTE | 2017-06-17 12:34 | CR ---
INDICATION: Shortness of breath. CHEST: PA and lateral views of the chest 06/16/2017 at 1949 hours were compared with clinic films dated the same date at 0912 hours, and [place] images from 10/11/2014. Mild degenerative changes are noted in the thoracic spine. Somewhat demineralized bony structures suggest osteoporosis. Slightly prominent AP diameter and slight flattening of diaphragm leaves suggests COPD, as previously. The heart is enlarged. The aorta is tortuous and calcified in the arch area. Dextroconvex scoliosis is noted at the lower thoracic spine, as previously. Very heavy markings are again noted scattered throughout the lungs, which may be on the basis of progressive pulmonary fibrosis, although other etiology such as aspiration pneumonia or even unusual pulmonary edema in a patient with CHF cannot be entirely excluded. Certainly, the possibility of superimposed areas of pneumonia on fibrosis would be considerations. MTDD
[2017-06-17] MEDS: Enoxaparin 40 MG/0.4 ML Syringe SUBCUT SCH (13:43)
[2017-06-17] MEDS: Pantoprazole 40 MG Vial IVPUSH SCH (13:43)
--- NOTE | 2017-06-17 14:10 | PCM.PN ---
- General Info Date of Service: 06/17/17 Subjective Update: 82-year-old female being treated for bilateral pneumonia and respiratory distress with bronchospasm and hypoxia. Her cough is improved with Tessalon Perles. Still unable to bring anything up. She feels a bit better today. Functional Status: Reports: Pain Controlled, Tolerating Diet, Ambulating, Urinating, Incentive Spirometry - Review of Systems General: Reports: Fatigue HEENT: Reports: Post Nasal Drip, Sore Throat Pulmonary: Reports: Shortness of Breath, Cough, Wheezing. Denies: Hemoptysis Cardiovascular: Reports: Dyspnea on Exertion. Denies: Palpitations Gastrointestinal: Denies: Abdominal Pain, Difficulty Swallowing, Nausea, Vomiting Genitourinary: Reports: No Symptoms Musculoskeletal: Reports: No Symptoms Skin: Denies: Diaphoresis Neurological: Reports: No Symptoms Psychiatric: Reports: No Symptoms - Patient Data Vitals - Most Recent: Last Vital Signs Temp 98.5 F 06/17/17 12:00 Pulse 74 06/17/17 12:00 Resp 20 06/17/17 12:00 BP 138/53 L 06/17/17 12:00 Pulse Ox 90 L 06/17/17 12:51 Weight - Most Recent: 91.716 kg I&O - Last 24 Hours: Intake & Output 06/16/17 06/17/17 06/17/17 22:59 06:59 14:59 Intake Total 300 Balance 300 Lab Results Last 24 Hours: Laboratory Results - last 24 hr 06/16/17 06/16/17 06/17/17 Range/Units 11:50 20:30 07:00 WBC 9.3 (4.5-12.0) X10-3/uL RBC 3.89 (3.23-5.20) x10(6)uL Hgb 10.8 L (11.5-15.5) g/dL Hct 32.0 (30.0-51.3) % MCV 82.2 (80-96) fL MCH 27.6 L (27.7-33.6) pg MCHC 33.6 (32.2-35.4) g/dL RDW 14.4 (11.5-15.5) % Plt Count 285 (125-369) X10(3)uL MPV 9.1 (7.4-10.4) fL Neut % (Auto) 67.0 (46-82) % Lymph % (Auto) 15.6 (13-37) % Starr % (Auto) 11.1 (4-12) % Eos % (Auto) 6 H (1.0-5.0) % Baso % (Auto) 1 (0-2) % Neut # (Auto) 6.4 (1.6-8.3) # Lymph # (Auto) 1.4 (0.6-5.0) # Starr # (Auto) 1.0 (0.0-1.3) # Eos # (Auto) 0.5 (0.0-0.8) # Baso # (Auto) 0.0 (0.0-0.2) # Sodium (135-145) mmol/L Potassium (3.5-5.3) mmol/L Chloride (100-110) mmol/L Carbon Dioxide (21-32) mmol/L BUN (7-18) mg/dL Creatinine (0.55-1.02) mg/dL Est Cr Clr Drug Dosing mL/min Estimated GFR (MDRD) (>60) BUN/Creatinine Ratio (9-20) Glucose (80-116) mg/dL Calcium (8.6-10.2) mg/dL NT-Pro-B Natriuret Pep 485 H 551 H (<=450) pg/mL 06/17/17 Range/Units 07:00 WBC (4.5-12.0) X10-3/uL RBC (3.23-5.20) x10(6)uL Hgb (11.5-15.5) g/dL Hct (30.0-51.3) % MCV (80-96) fL MCH (27.7-33.6) pg MCHC (32.2-35.4) g/dL RDW (11.5-15.5) % Plt Count (125-369) X10(3)uL MPV (7.4-10.4) fL Neut % (Auto) (46-82) % Lymph % (Auto) (13-37) % Starr % (Auto) (4-12) % Eos % (Auto) (1.0-5.0) % Baso % (Auto) (0-2) % Neut # (Auto) (1.6-8.3) # Lymph # (Auto) (0.6-5.0) # Starr # (Auto) (0.0-1.3) # Eos # (Auto) (0.0-0.8) # Baso # (Auto) (0.0-0.2) # Sodium 140 (135-145) mmol/L Potassium 3.9 (3.5-5.3) mmol/L Chloride 105 (100-110) mmol/L Carbon Dioxide 27 (21-32) mmol/L BUN 16 (7-18) mg/dL Creatinine 1.2 H (0.55-1.02) mg/dL Est Cr Clr Drug Dosing 32.52 mL/min Estimated GFR (MDRD) 43 L (>60) BUN/Creatinine Ratio 13.3 (9-20) Glucose 116 (80-116) mg/dL Calcium 9.2 (8.6-10.2) mg/dL NT-Pro-B Natriuret Pep (<=450) pg/mL Nicholas Results Last 24 Hours: Microbiology 06/16/17 11:45 Aerobic Blood Culture - Preliminary Blood NO GROWTH AFTER 1 DAY Anaerobic Blood Culture - Preliminary NO GROWTH AFTER 1 DAY 06/16/17 11:50 Aerobic Blood Culture - Preliminary Blood NO GROWTH AFTER 1 DAY Anaerobic Blood Culture - Preliminary NO GROWTH AFTER 1 DAY 06/16/17 15:29 Influenza Type A Antigen Screen - Final Nasopharyngeal Swab - Nare, Left NEGATIVE INFLUENZA A VIRUS AG Influenza Type B Antigen Screen - Final NEGATIVE INFLUENZA B VIRUS AG Med Orders - Current: Current Medications Acetaminophen (Tylenol) 650 mg PO Q4H PRN PRN Reason: Pain (Mild 1-3)/fever Albuterol/Ipratropium (Duoneb 3.0-0.5 Mg/3 Ml) 3 ml NEB QIDRT [facility] Last Admin: 06/17/17 10:49 Dose: 3 ml Benzonatate (Tessalon Perles) 200 mg PO BID [facility] Last Admin: 06/17/17 08:28 Dose: 200 mg Enoxaparin Sodium (Lovenox) 40 mg SUBCUT Q24H [facility] Last Admin: 06/17/17 13:43 Dose: 40 mg Gabapentin (Neurontin) 300 mg PO TID [facility] Last Admin: 06/17/17 13:45 Dose: 300 mg Lisinopril/HCTZ (Lisinopril/Hctz 20-12.5 Mg) 1 tab PO DAILY [facility] Last Admin: 06/17/17 08:26 Dose: 1 tab Levofloxacin/Dextrose 750 mg/ (Premix) 150 mls @ 100 mls/hr IV Q48H [facility] Stop: 06/24/17 14:29 Last Admin: 06/16/17 13:26 Dose: 100 mls/hr Metoprolol Tartrate (Lopressor) 12.5 mg PO BID [facility] Last Admin: 06/17/17 08:26 Dose: 12.5 mg Pantoprazole Sodium (Protonix Iv) 40 mg IVPUSH Q24H [facility] Last Admin: 06/17/17 13:43 Dose: 40 mg Sodium Chloride (Saline Flush) 10 ml FLUSH ASDIRECTED PRN PRN Reason: Keep Vein Open Last Admin: 06/16/17 13:34 Dose: 10 ml Zolpidem Tartrate (Ambien) 5 mg PO BEDTIME PRN PRN Reason: Sleep Discontinued Medications Benzonatate (Tessalon Perles) 200 mg PO BID PRN PRN Reason: Cough Potassium Chloride/Dextrose/Sod Cl (D5 1/2 Ns W/ 20 Meq/L Kcl) 1,000 mls @ 125 mls/hr IV Q8H [facility] Last Admin: 06/16/17 13:21 Dose: 125 mls/hr Methylprednisolone Sodium Succinate (Solu-Medrol) 125 mg IV NOW ONE Stop: 06/17/17 09:29 Last Admin: 06/17/17 10:34 Dose: 125 mg - Exam Physical Findings Comments:: Quality Assessment: Supplemental Oxygen, 2L NC General: Alert, Oriented, Cooperative, Mild Distress (Short respiratory phase), frequent coughing HEENT: Conjunctiva Clear, Nares Patent, Glasses. Neck: Supple, Trachea Midline. No: Lymphadenopathy, JVD Lungs: Decreased Breath Sounds, Crackles (Crackles bilateral lower bases. Coarse. No rhonchi. No stridor. no expiratory wheezes anterior at this time, but just completed a duoneb.) Cardiovascular: Regular Rate, Regular Rhythm, Normal S1, Normal S2 GI/Abdominal Exam: Normal Bowel Sounds, Soft, Non-Tender Extremities: Non-Tender, Normal Capillary Refill, Pedal Edema. No: Joint Swelling, Burak's Sign, Leg Pain, Increased Warmth Skin: Warm, Dry. No: Rash, Petechia, Ecchymosis Neurological: Normal Speech. No: Focal Deficit Psychiatric: Normal Affect, Normal Mood. No: Anxious - Problem List & Annotations (1) Pneumonia SNOMED Code(s): 256364451 Code(s): J18.9 - PNEUMONIA, UNSPECIFIED ORGANISM Status: Acute Priority: High Current Visit: Yes Qualifiers: Laterality: bilateral Lung location: lower lobe of lung (2) Respiratory distress, acute SNOMED Code(s): 810817057 Code(s): R06.03 - ACUTE RESPIRATORY DISTRESS Status: Acute Priority: High Current Visit: Yes (3) Dehydration, mild SNOMED Code(s): 4095181073548 Code(s): E86.0 - DEHYDRATION Status: Acute Current Visit: Yes (4) Renal insufficiency SNOMED Code(s): 688014921 Code(s): N28.9 - DISORDER OF KIDNEY AND URETER, UNSPECIFIED Status: Acute Current Visit: Yes (5) Complaint of debility and malaise SNOMED Code(s): 990858624 Code(s): R53.81 - OTHER MALAISE Status: Acute Current Visit: Yes (6) Back pain SNOMED Code(s): 523813810 Code(s): M54.9 - DORSALGIA, UNSPECIFIED Status: Chronic Current Visit: Yes Qualifiers: Back pain location: low back pain - Problem List Review Problem List Initiated/Reviewed/Updated: Yes - My Orders Last 24 Hours: My Active Orders 06/16/17 14:00 Gabapentin [Neurontin] 300 mg PO TID 06/16/17 15:33 Benzonatate [Tessalon Perles] 200 mg PO BID 06/16/17 16:00 Albuterol/Ipratropium [DuoNeb 3.0-0.5 MG/3 ML] 3 ml NEB QIDRT - Assessment Assessment:: Please see above - Plan Plan:: continue current treatment for bilateral lower lobe pneumonia with respiratory distress hypoxia. IV Levaquin at renal dosing. Respiratory therapy with DuoNeb and albuterol when necessary. Incentive spirometry to begin every 2 hours while awake. influenza swabs neg. Sputum culture if able. Antitussives working for her. Cultures pending. Have her up as tolerated. Monitor weight.Comorbidities have been reviewed and will continue to be treated accordingly any changes in medications or dosing will be documented if needed. All questions were answered, she is comfortable with plan of care. Anticipate discharge in 48-72 hours pending improvement is anticipated.
[2017-06-18] MEDS: Albuterol/Ipratropium 3.0-0.5 MG/3 ML Neb Soln NEB SCH ×4 (07:05→20:16)
[2017-06-18] MEDS: Gabapentin 300 MG Cap PO SCH ×3 (09:14→20:20)
[2017-06-18] MEDS: Hydrochlorothiazide/Lisinopril 12.5-20 MG Tab PO SCH (09:14)
[2017-06-18] MEDS: Metoprolol Tartrate 25 MG Tab PO SCH ×2 (09:15→20:20)
[2017-06-18] MEDS: Benzonatate 100 MG Cap PO SCH ×2 (09:16→20:25)
--- NOTE | 2017-06-18 09:17 | PCM.PN ---
- General Info Date of Service: 06/18/17 Subjective Update: 82-year-old female being treated for bilateral pneumonia and respiratory distress with bronchospasm and hypoxia. Her cough is improved with Tessalon Perles. Still unable to bring anything up. She feels a bit better today. Functional Status: Reports: Pain Controlled, Tolerating Diet, Ambulating, Urinating, Incentive Spirometry - Review of Systems Systems Review Comment:: General: Reports: Fatigue HEENT: No headache vision change nasal congestion or postnasal drip Pulmonary: Reports: Shortness of Breath, Cough, Wheezing. Denies: Hemoptysis Cardiovascular: Reports: Dyspnea on Exertion. Denies: Palpitations Gastrointestinal: Denies: Abdominal Pain, Difficulty Swallowing, Nausea, Vomiting Genitourinary: Reports: No Symptoms Musculoskeletal: Reports: No Symptoms Skin: Denies: Diaphoresis Neurological: Reports: No Symptoms Psychiatric: Reports: No Symptoms - Patient Data Vitals - Most Recent: Last Vital Signs Temp 98.4 F 06/18/17 05:15 Pulse 88 06/18/17 07:15 Resp 19 06/18/17 05:15 BP 135/55 L 06/18/17 05:15 Pulse Ox 92 L 06/18/17 07:15 Weight - Most Recent: 91.716 kg Nicholas Results Last 24 Hours: Microbiology 06/16/17 11:45 Aerobic Blood Culture - Preliminary Blood NO GROWTH AFTER 1 DAY Anaerobic Blood Culture - Preliminary NO GROWTH AFTER 1 DAY 06/16/17 11:50 Aerobic Blood Culture - Preliminary Blood NO GROWTH AFTER 1 DAY Anaerobic Blood Culture - Preliminary NO GROWTH AFTER 1 DAY Med Orders - Current: Current Medications Acetaminophen (Tylenol) 650 mg PO Q4H PRN PRN Reason: Pain (Mild 1-3)/fever Albuterol/Ipratropium (Duoneb 3.0-0.5 Mg/3 Ml) 3 ml NEB QIDRT [facility] Last Admin: 06/18/17 07:05 Dose: 3 ml Benzonatate (Tessalon Perles) 200 mg PO BID [facility] Last Admin: 06/17/17 20:40 Dose: 200 mg Enoxaparin Sodium (Lovenox) 40 mg SUBCUT Q24H [facility] Last Admin: 06/17/17 13:43 Dose: 40 mg Gabapentin (Neurontin) 300 mg PO TID [facility] Last Admin: 06/17/17 20:40 Dose: 300 mg Lisinopril/HCTZ (Lisinopril/Hctz 20-12.5 Mg) 1 tab PO DAILY [facility] Last Admin: 06/17/17 08:26 Dose: 1 tab Levofloxacin/Dextrose 750 mg/ (Premix) 150 mls @ 100 mls/hr IV Q48H [facility] Stop: 06/24/17 14:29 Last Admin: 06/16/17 13:26 Dose: 100 mls/hr Metoprolol Tartrate (Lopressor) 12.5 mg PO BID [facility] Last Admin: 06/17/17 20:39 Dose: 12.5 mg Pantoprazole Sodium (Protonix Iv) 40 mg IVPUSH Q24H [facility] Last Admin: 06/17/17 13:43 Dose: 40 mg Sodium Chloride (Saline Flush) 10 ml FLUSH ASDIRECTED PRN PRN Reason: Keep Vein Open Last Admin: 06/16/17 13:34 Dose: 10 ml Zolpidem Tartrate (Ambien) 5 mg PO BEDTIME PRN PRN Reason: Sleep Discontinued Medications Benzonatate (Tessalon Perles) 200 mg PO BID PRN PRN Reason: Cough Potassium Chloride/Dextrose/Sod Cl (D5 1/2 Ns W/ 20 Meq/L Kcl) 1,000 mls @ 125 mls/hr IV Q8H [facility] Last Admin: 06/16/17 13:21 Dose: 125 mls/hr Methylprednisolone Sodium Succinate (Solu-Medrol) 125 mg IV NOW ONE Stop: 06/17/17 09:29 Last Admin: 06/17/17 10:34 Dose: 125 mg - Exam Physical Findings Comments:: Quality Assessment: Supplemental Oxygen, 2L NC General: Alert, Oriented, Cooperative, Mild Distress (Short respiratory phase), frequent coughing HEENT: Conjunctiva Clear, Nares Patent, Glasses. Neck: Supple, Trachea Midline. No: Lymphadenopathy, JVD Lungs: Decreased Breath Sounds, Crackles (Crackles bilateral lower bases. Coarse. No rhonchi. No stridor. continued expiratory wheezes anterior) Cardiovascular: Regular Rate, Regular Rhythm, Normal S1, Normal S2 GI/Abdominal Exam: Normal Bowel Sounds, Soft, Non-Tender Extremities: Non-Tender, Normal Capillary Refill, Pedal Edema. No: Joint Swelling, Burak's Sign, Leg Pain, Increased Warmth Skin: Warm, Dry. No: Rash, Petechia, Ecchymosis Neurological: Normal Speech. No: Focal Deficit Psychiatric: Normal Affect, Normal Mood. at times confused and forgetful. No: Anxious - Problem List & Annotations (1) Pneumonia SNOMED Code(s): 875310336 Code(s): J18.9 - PNEUMONIA, UNSPECIFIED ORGANISM Status: Acute Priority: High Current Visit: Yes Qualifiers: Laterality: bilateral Lung location: lower lobe of lung (2) Respiratory distress, acute SNOMED Code(s): 249517584 Code(s): R06.03 - ACUTE RESPIRATORY DISTRESS Status: Acute Priority: High Current Visit: Yes (3) Dehydration, mild SNOMED Code(s): 8047416437074 Code(s): E86.0 - DEHYDRATION Status: Acute Current Visit: Yes (4) Renal insufficiency SNOMED Code(s): 472754186 Code(s): N28.9 - DISORDER OF KIDNEY AND URETER, UNSPECIFIED Status: Acute Current Visit: Yes (5) Complaint of debility and malaise SNOMED Code(s): 579077830 Code(s): R53.81 - OTHER MALAISE Status: Acute Current Visit: Yes (6) Pulmonary fibrosis SNOMED Code(s): 27580242 Code(s): J84.10 - PULMONARY FIBROSIS, UNSPECIFIED Status: Chronic Current Visit: Yes Annotation/Comment:: bilateral. (7) Back pain SNOMED Code(s): 436668624 Code(s): M54.9 - DORSALGIA, UNSPECIFIED Status: Chronic Current Visit: Yes Qualifiers: Back pain location: low back pain - Problem List Review Problem List Initiated/Reviewed/Updated: Yes - Assessment Assessment:: Please see above - Plan Plan:: continue current treatment for bilateral lower lobe pneumonia with respiratory distress hypoxia. IV Levaquin at renal dosing. Respiratory therapy with DuoNeb and albuterol when necessary. wean down IV steroids. Incentive spirometry to begin every 2 hours while awake. influenza swabs neg. Sputum culture if able. Antitussives working for her. Cultures pending. Have her up as tolerated. Monitor weight. Comorbidities have been reviewed and will continue to be treated accordingly any changes in medications or dosing will be documented if needed. restarted her metoprolol and pascual. All questions were answered, she is comfortable with plan of care. Anticipate discharge in 48-72 hours pending improvement is anticipated.
[2017-06-18] MEDS: Pantoprazole 40 MG Vial IVPUSH SCH (13:04)
[2017-06-18] MEDS: Enoxaparin 40 MG/0.4 ML Syringe SUBCUT SCH (13:04)
[2017-06-18] MEDS: Levofloxacin/Dextrose 5%-Water 750 MG in Premix Bag 1 BAG IV SCH (13:05)
[2017-06-18] MEDS: Sodium Chloride 0.9% 10 ML Syringe FLUSH PRN ×3 (15:50→20:26)
[2017-06-18] MEDS: methylPREDNISolone Sodium Succinate 125 MG/2 ML SDV IVPUSH SCH ×2 (15:50→20:25)
[2017-06-19] MEDS: Sodium Chloride 0.9% 10 ML Syringe FLUSH PRN ×2 (03:03→21:17)
[2017-06-19] MEDS: methylPREDNISolone Sodium Succinate 125 MG/2 ML SDV IVPUSH SCH ×2 (03:03→08:28)
[2017-06-19] MEDS: Albuterol/Ipratropium 3.0-0.5 MG/3 ML Neb Soln NEB SCH ×4 (07:03→21:05)
[2017-06-19] MEDS: Gabapentin 300 MG Cap PO SCH ×3 (08:21→21:10)
[2017-06-19] MEDS: Metoprolol Tartrate 25 MG Tab PO SCH ×2 (08:21→21:09)
[2017-06-19] MEDS: Hydrochlorothiazide/Lisinopril 12.5-20 MG Tab PO SCH (08:21)
[2017-06-19] MEDS: Benzonatate 100 MG Cap PO SCH ×2 (08:21→21:11)
[2017-06-19] MEDS ORDERED: Furosemide 20 MG/2 ML VIAL IVPUSH ONE (10:32)
--- NOTE | 2017-06-19 11:50 | PCM.PN ---
- General Info Date of Service: 06/19/17 Subjective Update: 82-year-old female being treated for bilateral pneumonia and respiratory distress with bronchospasm and hypoxia. Her cough is improved with Tessalon Perles. Still unable to bring anything up. She feels a bit better today. family in room states looks better. still on oxygen. sitting up in her chair. Functional Status: Reports: Pain Controlled, Tolerating Diet, Ambulating, Urinating, Incentive Spirometry - Review of Systems Systems Review Comment:: General: Reports: Fatigue with exertion but mild at rest. feels getting better. HEENT: No headache vision change nasal congestion or postnasal drip Pulmonary: Reports: Shortness of Breath, Cough, Wheezing. Denies: Hemoptysis Cardiovascular: Reports: Dyspnea on Exertion. Denies: Palpitations Gastrointestinal: Denies: Abdominal Pain, Difficulty Swallowing, Nausea, Vomiting Genitourinary: Reports: No Symptoms Musculoskeletal: Reports: No Symptoms Skin: Denies: Diaphoresis Neurological: Reports: No Symptoms Psychiatric: Reports: No Symptoms - Patient Data Vitals - Most Recent: Last Vital Signs Temp 98.0 F 06/19/17 08:30 Pulse 88 06/19/17 10:50 Resp 20 06/19/17 08:30 BP 127/46 L 06/19/17 08:30 Pulse Ox 95 06/19/17 10:50 Weight - Most Recent: 91.898 kg I&O - Last 24 Hours: Intake & Output 06/18/17 06/19/17 06/19/17 22:59 06:59 14:59 Intake Total 250 300 Output Total 500 700 0 Balance -500 -450 300 Lab Results Last 24 Hours: Laboratory Results - last 24 hr 06/19/17 06/19/17 06/19/17 Range/Units 06:20 06:20 06:20 WBC 15.7 H (4.5-12.0) X10-3/uL RBC 3.87 (3.23-5.20) x10(6)uL Hgb 10.5 L (11.5-15.5) g/dL Hct 32.1 (30.0-51.3) % MCV 82.8 (80-96) fL MCH 27.1 L (27.7-33.6) pg MCHC 32.7 (32.2-35.4) g/dL RDW 14.8 (11.5-15.5) % Plt Count 274 (125-369) X10(3)uL MPV 10.3 (7.4-10.4) fL Add Manual Diff Yes Neutrophils % (Manual) 96 H (46-82) % Lymphocytes % (Manual) 4 L (13-37) % Sodium 138 (135-145) mmol/L Potassium 5.1 D (3.5-5.3) mmol/L Chloride 103 (100-110) mmol/L Carbon Dioxide 22 (21-32) mmol/L BUN 39 H D (7-18) mg/dL Creatinine 1.5 H (0.55-1.02) mg/dL Est Cr Clr Drug Dosing 26.02 mL/min Estimated GFR (MDRD) 33 L (>60) BUN/Creatinine Ratio 26.0 H (9-20) Glucose 210 H D (80-116) mg/dL Calcium 9.4 (8.6-10.2) mg/dL NT-Pro-B Natriuret Pep 554 H (<=450) pg/mL Nicholas Results Last 24 Hours: Microbiology 06/16/17 11:45 Aerobic Blood Culture - Preliminary Blood NO GROWTH AFTER 2 DAYS Anaerobic Blood Culture - Preliminary NO GROWTH AFTER 2 DAYS 06/16/17 11:50 Aerobic Blood Culture - Preliminary Blood NO GROWTH AFTER 2 DAYS Anaerobic Blood Culture - Preliminary NO GROWTH AFTER 2 DAYS Med Orders - Current: Current Medications Acetaminophen (Tylenol) 650 mg PO Q4H PRN PRN Reason: Pain (Mild 1-3)/fever Albuterol/Ipratropium (Duoneb 3.0-0.5 Mg/3 Ml) 3 ml NEB QIDRT [facility] Last Admin: 06/19/17 10:36 Dose: 3 ml Benzonatate (Tessalon Perles) 200 mg PO BID [facility] Last Admin: 06/19/17 08:21 Dose: 200 mg Enoxaparin Sodium (Lovenox) 30 mg SUBCUT Q24H [facility] Gabapentin (Neurontin) 300 mg PO TID [facility] Last Admin: 06/19/17 08:21 Dose: 300 mg Lisinopril/HCTZ (Lisinopril/Hctz 20-12.5 Mg) 1 tab PO DAILY [facility] Last Admin: 06/19/17 08:21 Dose: 1 tab Levofloxacin/Dextrose 750 mg/ (Premix) 150 mls @ 100 mls/hr IV Q48H [facility] Stop: 06/24/17 14:29 Last Admin: 06/18/17 13:05 Dose: 100 mls/hr Methylprednisolone Sodium Succinate (Solu-Medrol) 62.5 mg IVPUSH Q12H [facility] Metoprolol Tartrate (Lopressor) 12.5 mg PO BID [facility] Last Admin: 06/19/17 08:21 Dose: 12.5 mg Pantoprazole Sodium (Protonix Iv) 40 mg IVPUSH Q24H [facility] Last Admin: 06/18/17 13:04 Dose: 40 mg Sodium Chloride (Saline Flush) 10 ml FLUSH ASDIRECTED PRN PRN Reason: Keep Vein Open Last Admin: 06/19/17 03:03 Dose: 10 ml Zolpidem Tartrate (Ambien) 5 mg PO BEDTIME PRN PRN Reason: Sleep Discontinued Medications Benzonatate (Tessalon Perles) 200 mg PO BID PRN PRN Reason: Cough Enoxaparin Sodium (Lovenox) 40 mg SUBCUT Q24H [facility] Last Admin: 06/18/17 13:04 Dose: 40 mg Furosemide (Lasix) 20 mg IVPUSH ONETIME ONE Stop: 06/19/17 10:33 Last Admin: 06/19/17 10:57 Dose: 20 mg Potassium Chloride/Dextrose/Sod Cl (D5 1/2 Ns W/ 20 Meq/L Kcl) 1,000 mls @ 125 mls/hr IV Q8H [facility] Last Admin: 06/16/17 13:21 Dose: 125 mls/hr Methylprednisolone Sodium Succinate (Solu-Medrol) 125 mg IV NOW ONE Stop: 06/17/17 09:29 Last Admin: 06/17/17 10:34 Dose: 125 mg Methylprednisolone Sodium Succinate (Solu-Medrol) 62.5 mg IVPUSH Q6H [facility] Last Admin: 06/19/17 08:28 Dose: 62.5 mg - Exam Physical Findings Comments:: Quality Assessment: Supplemental Oxygen, 2L NC General: Alert, Oriented, Cooperative, Mild Distress (Short respiratory phase), frequent coughing HEENT: Conjunctiva Clear, Nares Patent, Glasses. Neck: Supple, Trachea Midline. No: Lymphadenopathy, JVD Lungs: Improving Breath Sounds throughout, Crackles (Crackles bilateral lower bases. Coarse. No rhonchi. No stridor. expiratory wheezes absent today. Cardiovascular: Regular Rate, Regular Rhythm, Normal S1, Normal S2 GI/Abdominal Exam: Normal Bowel Sounds, Soft, Non-Tender Extremities: Non-Tender, Normal Capillary Refill, Pedal Edema. No: Joint Swelling, Burak's Sign, Leg Pain, Increased Warmth Skin: Warm, Dry. No: Rash, Petechia, Ecchymosis Neurological: Normal Speech. No: Focal Deficit Psychiatric: Normal Affect, Normal Mood.No: Anxious - Problem List & Annotations (1) Pneumonia SNOMED Code(s): 261998787 Code(s): J18.9 - PNEUMONIA, UNSPECIFIED ORGANISM Status: Acute Priority: High Current Visit: Yes Qualifiers: Laterality: bilateral Lung location: lower lobe of lung (2) Respiratory distress, acute SNOMED Code(s): 773964610 Code(s): R06.03 - ACUTE RESPIRATORY DISTRESS Status: Acute Priority: High Current Visit: Yes (3) Dehydration, mild SNOMED Code(s): 1244754140251 Code(s): E86.0 - DEHYDRATION Status: Acute Current Visit: Yes (4) Renal insufficiency SNOMED Code(s): 270226600 Code(s): N28.9 - DISORDER OF KIDNEY AND URETER, UNSPECIFIED Status: Acute Current Visit: Yes (5) Pulmonary fibrosis SNOMED Code(s): 67756674 Code(s): J84.10 - PULMONARY FIBROSIS, UNSPECIFIED Status: Chronic Current Visit: Yes Annotation/Comment:: bilateral. (6) Complaint of debility and malaise SNOMED Code(s): 963686104 Code(s): R53.81 - OTHER MALAISE Status: Acute Current Visit: Yes (7) Back pain SNOMED Code(s): 867010265 Code(s): M54.9 - DORSALGIA, UNSPECIFIED Status: Chronic Current Visit: Yes Qualifiers: Back pain location: low back pain (8) Palliative care status SNOMED Code(s): 177219845 Code(s): Z51.5 - ENCOUNTER FOR PALLIATIVE CARE Status: Acute Current Visit: Yes - Problem List Review Problem List Initiated/Reviewed/Updated: Yes - My Orders Last 24 Hours: My Active Orders 06/18/17 14:51 Intake and Output Strict [RC] Q4H 06/19/17 13:00 Enoxaparin [Lovenox] 30 mg SUBCUT Q24H 06/19/17 15:00 BASIC METABOLIC PANEL,BMP [CHEM] Routine 06/19/17 21:00 methylPREDNISolone Sod Succ [Solu-MEDROL] 62.5 mg IVPUSH Q12H 06/20/17 05:11 CXR [Chest 2V] [CR] AM BASIC METABOLIC PANEL,BMP [CHEM] AM CBC WITH AUTO DIFF [HEME] AM - Assessment Assessment:: Please see above - Plan Plan:: continue current treatment for bilateral lower lobe pneumonia with respiratory distress hypoxia. IV Levaquin at renal dosing. Renal function decreasing, will get strict ins and outs. Potassium is going up so will hold her lisinopril hydrochlorothiazide. Respiratory therapy with DuoNeb renny and albuterol when necessary. Incentive spirometry to every 2 hours while awake. blood cultures neg. Antitussives working for her. Have her up as tolerated. Monitor weight. Comorbidities have been reviewed and will continue to be treated accordingly any changes in medications or dosing will be documented if needed. Follow-up checklist x-ray in the morning. Repeat labs in the morning as well. White count still elevated again likely secondary to demargination from steroid bursting but will follow. All questions were answered, she is comfortable with plan of care. Anticipate discharge in 48-72 hours pending improvement is anticipated.
[2017-06-19] MEDS: Enoxaparin 40 MG/0.4 ML Syringe SUBCUT SCH (13:06)
[2017-06-19] MEDS: Pantoprazole 40 MG Vial IVPUSH SCH (13:06)
[2017-06-19] MEDS: Enoxaparin 30 MG/0.3 ML Syringe SUBCUT SCH (13:10)
[2017-06-19] MEDS ORDERED: methylPREDNISolone Sodium Succinate 125 MG/2 ML SDV IVPUSH SCH (21:00)
[2017-06-20] MEDS: Albuterol/Ipratropium 3.0-0.5 MG/3 ML Neb Soln NEB SCH ×4 (08:24→20:17)
[2017-06-20] MEDS: predniSONE 20 MG Tab PO SCH (09:14)
[2017-06-20] MEDS: Amoxicillin/Clavulanate K 500-125 MG Tab PO SCH ×2 (09:14→20:16)
[2017-06-20] MEDS: Metoprolol Tartrate 25 MG Tab PO SCH ×2 (09:16→20:17)
[2017-06-20] MEDS: Benzonatate 100 MG Cap PO SCH ×2 (09:17→20:18)
[2017-06-20] MEDS: Gabapentin 300 MG Cap PO SCH ×3 (09:17→20:18)
--- NOTE | 2017-06-20 11:05 | CR ---
INDICATION: Pneumonia, pulmonary fibrosis. CHEST: PA and lateral views of the chest 06/20/2017 at 0912 hours, were compared with 06/16/2017 at 1949 hours, revealing suggestion of slightly decreased markings in the upper middle lung field on the right, suggesting an area of resolving pneumonia in that area, superimposed on pulmonary fibrosis, which appears to be fairly severe, there being heavy markings scattered throughout the lungs bilaterally, as previously. These heavy markings are definitely progressive, compared with 10/11/2014 examination. Chronic inflammatory process could be present. Aspiration pneumonia would also be a consideration. The heart is slightly enlarged. The left ventricle appears to be significantly enlarged. The aorta is slightly tortuous with minimal calcification in the arch. Diminished density of bony structures raises question of mild osteoporosis. Mild COPD could be present, with slightly flattened diaphragm leaves and prominent AP diameter. Exogenous obesity is also present. IMPRESSION: 1. Possible resolving patchy pneumonia left upper middle lung field superimposed on pulmonary fibrosis of moderately severe degree. Etiology - chronic inflammatory disease versus aspiration pneumonia. 2. Possible mild or early COPD. 3. ASHD with LVE. 4. Diminished bone density, which may be on the basis of osteoporosis - correlate clinically. 5. Dextroconvex scoliosis thoracolumbar spine, slightly increased in severity compared with 2014. MTDD
--- NOTE | 2017-06-20 11:27 | PCM.PN ---
- General Info Date of Service: 06/20/17 Subjective Update: 82-year-old female being treated for bilateral pneumonia and respiratory distress with bronchospasm and hypoxia. Her cough contiues and is try. Kelilucysanya Ahsanvipin on board. Still unable to bring anything up. She was not coughing as I entered the room but shortly after she took a sip her water she did begin protracted coughing episodes. She denies any choking or difficulty swallowing. Otherwise her coughing is sporadic. history on her lisinopril usage and states she's been on for years. She feels better today otherwise. still on oxygen. sitting up in her chair. Functional Status: Reports: Pain Controlled, Tolerating Diet, Ambulating, Urinating, Incentive Spirometry - Patient Data Vitals - Most Recent: Last Vital Signs Temp 97.7 F 06/20/17 01:50 Pulse 80 06/20/17 10:49 Resp 19 06/20/17 01:50 BP 140/55 L 06/20/17 09:16 Pulse Ox 90 L 06/20/17 10:47 Weight - Most Recent: 91.989 kg I&O - Last 24 Hours: Intake & Output 06/19/17 06/20/17 06/20/17 22:59 06:59 14:59 Intake Total 400 150 400 Output Total 800 450 Balance -400 -300 400 Lab Results Last 24 Hours: Laboratory Results - last 24 hr 06/19/17 06/20/17 06/20/17 Range/Units 15:00 06:07 06:07 WBC 19.4 H (4.5-12.0) X10-3/uL RBC 4.02 (3.23-5.20) x10(6)uL Hgb 11.0 L (11.5-15.5) g/dL Hct 32.8 (30.0-51.3) % MCV 81.7 (80-96) fL MCH 27.3 L (27.7-33.6) pg MCHC 33.5 (32.2-35.4) g/dL RDW 15.0 (11.5-15.5) % Plt Count 350 (125-369) X10(3)uL MPV 9.7 (7.4-10.4) fL Add Manual Diff Yes Neutrophils % (Manual) 90 H (46-82) % Band Neutrophils % 2 (0-6) % Lymphocytes % (Manual) 6 L (13-37) % Monocytes % (Manual) 2 L (4-12) % Sodium 135 138 (135-145) mmol/L Potassium 4.9 4.7 (3.5-5.3) mmol/L Chloride 99 L 103 (100-110) mmol/L Carbon Dioxide 24 24 (21-32) mmol/L BUN 45 H 50 H (7-18) mg/dL Creatinine 1.7 H 1.7 H (0.55-1.02) mg/dL Est Cr Clr Drug Dosing 22.96 22.96 mL/min Estimated GFR (MDRD) 29 L 29 L (>60) BUN/Creatinine Ratio 26.5 H 29.4 H (9-20) Glucose 228 H 221 H (80-116) mg/dL Calcium 9.6 9.4 (8.6-10.2) mg/dL Nicholas Results Last 24 Hours: Microbiology 06/16/17 11:45 Aerobic Blood Culture - Preliminary Blood NO GROWTH AFTER 3 DAYS Anaerobic Blood Culture - Preliminary NO GROWTH AFTER 3 DAYS 06/16/17 11:50 Aerobic Blood Culture - Preliminary Blood NO GROWTH AFTER 3 DAYS Anaerobic Blood Culture - Preliminary NO GROWTH AFTER 3 DAYS Med Orders - Current: Current Medications Acetaminophen (Tylenol) 650 mg PO Q4H PRN PRN Reason: Pain (Mild 1-3)/fever Last Admin: 06/19/17 21:16 Dose: 650 mg Albuterol/Ipratropium (Duoneb 3.0-0.5 Mg/3 Ml) 3 ml NEB QIDRT [facility] Last Admin: 06/20/17 10:47 Dose: 3 ml Amoxicillin/Clavulanate Potassium (Augmentin 500 Mg\125 Mg) 1 tab PO Q12H [facility] Last Admin: 06/20/17 09:14 Dose: 1 tab Benzonatate (Tessalon Perles) 200 mg PO BID [facility] Last Admin: 06/20/17 09:17 Dose: 200 mg Enoxaparin Sodium (Lovenox) 30 mg SUBCUT Q24H [facility] Last Admin: 06/19/17 13:10 Dose: 30 mg Gabapentin (Neurontin) 300 mg PO TID [facility] Last Admin: 06/20/17 09:17 Dose: 300 mg Lisinopril/HCTZ (Lisinopril/Hctz 20-12.5 Mg) 1 tab PO DAILY [facility] Last Admin: 06/19/17 08:21 Dose: 1 tab Metoprolol Tartrate (Lopressor) 12.5 mg PO BID [facility] Last Admin: 06/20/17 09:16 Dose: 12.5 mg Pantoprazole Sodium (Protonix Iv) 40 mg IVPUSH Q24H [facility] Last Admin: 06/19/17 13:06 Dose: 40 mg Prednisone (Prednisone) 60 mg PO WITHBREAKFAST [facility] Last Admin: 06/20/17 09:14 Dose: 60 mg Sodium Chloride (Saline Flush) 10 ml FLUSH ASDIRECTED PRN PRN Reason: Keep Vein Open Last Admin: 06/19/17 21:17 Dose: 10 ml Zolpidem Tartrate (Ambien) 5 mg PO BEDTIME PRN PRN Reason: Sleep Discontinued Medications Benzonatate (Tessalon Perles) 200 mg PO BID PRN PRN Reason: Cough Enoxaparin Sodium (Lovenox) 40 mg SUBCUT Q24H [facility] Last Admin: 06/19/17 13:06 Dose: 40 mg Furosemide (Lasix) 20 mg IVPUSH ONETIME ONE Stop: 06/19/17 10:33 Last Admin: 06/19/17 10:57 Dose: 20 mg Levofloxacin/Dextrose 750 mg/ (Premix) 150 mls @ 100 mls/hr IV Q48H [facility] Stop: 06/24/17 14:29 Last Admin: 06/18/17 13:05 Dose: 100 mls/hr Potassium Chloride/Dextrose/Sod Cl (D5 1/2 Ns W/ 20 Meq/L Kcl) 1,000 mls @ 125 mls/hr IV Q8H [facility] Last Admin: 06/16/17 13:21 Dose: 125 mls/hr Methylprednisolone Sodium Succinate (Solu-Medrol) 125 mg IV NOW ONE Stop: 06/17/17 09:29 Last Admin: 06/17/17 10:34 Dose: 125 mg Methylprednisolone Sodium Succinate (Solu-Medrol) 62.5 mg IVPUSH Q6H [facility] Last Admin: 06/19/17 08:28 Dose: 62.5 mg Methylprednisolone Sodium Succinate (Solu-Medrol) 62.5 mg IVPUSH Q12H [facility] Last Admin: 06/19/17 21:21 Dose: 62.5 mg - Exam Physical Findings Comments:: Quality Assessment: Supplemental Oxygen, 2L NC General: Alert, Oriented, Cooperative, no Distress, frequent coughing HEENT: Conjunctiva Clear, Nares Patent, Glasses. Neck: Supple, Trachea Midline. No: Lymphadenopathy, JVD Lungs: Improving Breath Sounds throughout, Crackles (Crackles bilateral lower bases. Coarse. No rhonchi. No stridor. expiratory wheezes absent today. Cardiovascular: Regular Rate, Regular Rhythm, Normal S1, Normal S2 GI/Abdominal Exam: Normal Bowel Sounds, Soft, Non-Tender Extremities: Non-Tender, Normal Capillary Refill, Pedal Edema. No: Joint Swelling, Ubrak's Sign, Leg Pain, Increased Warmth Skin: Warm, Dry. No: Rash, Petechia, Ecchymosis Neurological: Normal Speech. No: Focal Deficit Psychiatric: Normal Affect, Normal Mood.No: Anxious - Problem List & Annotations (1) Pneumonia SNOMED Code(s): 304017034 Code(s): J18.9 - PNEUMONIA, UNSPECIFIED ORGANISM Status: Acute Priority: High Current Visit: Yes Qualifiers: Laterality: bilateral Lung location: lower lobe of lung (2) Respiratory distress, acute SNOMED Code(s): 425462066 Code(s): R06.03 - ACUTE RESPIRATORY DISTRESS Status: Acute Priority: High Current Visit: Yes (3) Dehydration, mild SNOMED Code(s): 2176142772424 Code(s): E86.0 - DEHYDRATION Status: Acute Current Visit: Yes (4) Renal insufficiency SNOMED Code(s): 015353878 Code(s): N28.9 - DISORDER OF KIDNEY AND URETER, UNSPECIFIED Status: Acute Current Visit: Yes (5) Pulmonary fibrosis SNOMED Code(s): 61045154 Code(s): J84.10 - PULMONARY FIBROSIS, UNSPECIFIED Status: Chronic Current Visit: Yes Annotation/Comment:: bilateral. (6) Complaint of debility and malaise SNOMED Code(s): 075220799 Code(s): R53.81 - OTHER MALAISE Status: Acute Current Visit: Yes (7) Back pain SNOMED Code(s): 394981853 Code(s): M54.9 - DORSALGIA, UNSPECIFIED Status: Chronic Current Visit: Yes Qualifiers: Back pain location: low back pain (8) Palliative care status SNOMED Code(s): 117506383 Code(s): Z51.5 - ENCOUNTER FOR PALLIATIVE CARE Status: Acute Current Visit: Yes - Problem List Review Problem List Initiated/Reviewed/Updated: Yes - My Orders Last 24 Hours: My Active Orders 06/19/17 13:00 Enoxaparin [Lovenox] 30 mg SUBCUT Q24H 06/20/17 07:31 URINALYSIS W/MICROSCOPIC [UA W/MICROSCOPIC] [URIN] Routine 06/20/17 08:00 Amoxicillin/Clavulanate K [Augmentin 500 MG\125 MG] 1 tab PO Q12H predniSONE 60 mg PO WITHBREAKFAST 06/20/17 11:21 Modified Barium Swallow Study [Swallowing Function w Video] [CR] Routine 06/20/17 Lunch National Dysphagia Diet [DIET] - Assessment Assessment:: Please see above - Plan Plan:: I will switch her over to oral Augmentin. Chest x-ray today. With her coughing noted after taking a sip of water I am concerned this could be a possibility of aspiration syndrome. Augmentin would cover this as well that is contributing to her pneumonia. I will go ahead and order a swallow study to evaluate this. In the meantime switch over to national dysphagia diet. She is given Lasix to help bring her potassium down her lisinopril on hold. White count continues to be elevated I will go ahead and check a urinalysis as well as CRP and see how the chest x-ray looks a day. Switching over to oral prednisone as well today. Clinically she looks like she is improving and subjectively she feels as such. Respiratory therapy with DuoNeb and albuterol when necessary. Incentive spirometry every 2 hours while awake. Have her up as tolerated. She remained afebrile, with good urine output..Comorbidities have been reviewed and will continue to be treated accordingly any changes in medications or dosing will be documented if needed. All questions were answered, she is comfortable with plan of care. Anticipate discharge in 24-48hours pending improvement is anticipated.
[2017-06-20] MEDS: Enoxaparin 30 MG/0.3 ML Syringe SUBCUT SCH (13:11)
[2017-06-20] MEDS: Pantoprazole 40 MG Vial IVPUSH SCH (13:14)
[2017-06-20] MEDS: Sodium Chloride 0.9% 10 ML Syringe FLUSH PRN (13:23)
--- NOTE | 2017-06-20 14:59 | CR ---
INDICATION: Chronic coughing with food intake. Suspect aspiration pneumonia. SWALLOWING FUNCTION WITH VIDEO: 1 minute 51 seconds video fluoroscopy time was utilized with various barium-tinged meals to evaluate the swallowing mechanism. No significant abnormalities were identified with no penetration or aspiration identified. No significant retention or significant spillage was felt to be present. IMPRESSION: Essentially normal swallowing mechanism. No evidence of penetration or aspiration. MTDD
[2017-06-21] MEDS: Albuterol/Ipratropium 3.0-0.5 MG/3 ML Neb Soln NEB SCH ×2 (07:04→11:56)
[2017-06-21] MEDS: Amoxicillin/Clavulanate K 500-125 MG Tab PO SCH (08:10)
[2017-06-21] MEDS: Gabapentin 300 MG Cap PO SCH ×2 (08:10→14:34)
[2017-06-21] MEDS: predniSONE 20 MG Tab PO SCH (08:11)
[2017-06-21] MEDS: Benzonatate 100 MG Cap PO SCH (08:11)
[2017-06-21] MEDS: Metoprolol Tartrate 25 MG Tab PO SCH (08:12)
[2017-06-21] MEDS: Hydrochlorothiazide/Lisinopril 12.5-20 MG Tab PO SCH (09:43)
[2017-06-21] MEDS ORDERED: Sodium Chloride 0.9% 500 ML IV ONE (10:30)
[2017-06-21] MEDS ORDERED: Iopamidol 755 Mg/ML 75 ML Bottle IV ONE (11:37)
--- NOTE | 2017-06-21 13:10 | PCM.DCSUM1 ---
Discharge Summary - Hospital Course HPI Initial Comments: Patient is an 82-year-old female was admitted on 06/16/2017 for acute respiratory distress with sudden onset protracted coughing seen in outpatient clinic with evaluation of clinical pneumonia. Direct admit to our hospital. Complicating factor includes moderate severe idiopathic pulmonary fibrosis (IPF). - Discharge Data Discharge Date: 06/21/17 Discharge Disposition: DC/Tfer to Acute Hospital 02 Condition: Poor - Discharge Diagnosis/Problem(s) (1) Pneumonia SNOMED Code(s): 599119137 ICD Code: J18.9 - PNEUMONIA, UNSPECIFIED ORGANISM Status: Acute Priority : High Current Visit: Yes Qualifiers: Laterality: bilateral Lung location: lower lobe of lung (2) Respiratory distress, acute SNOMED Code(s): 167125534 ICD Code: R06.03 - ACUTE RESPIRATORY DISTRESS Status: Acute Priority: High Current Visit: Yes (3) Pulmonary fibrosis SNOMED Code(s): 90573208 ICD Code: J84.10 - PULMONARY FIBROSIS, UNSPECIFIED Status: Chronic Current Visit: Yes Problem Details: bilateral. (4) Renal insufficiency SNOMED Code(s): 054131776 ICD Code: N28.9 - DISORDER OF KIDNEY AND URETER, UNSPECIFIED Status: Acute Current Visit: Yes (5) Dehydration, mild SNOMED Code(s): 2606651265987 ICD Code: E86.0 - DEHYDRATION Status: Acute Current Visit: Yes (6) Complaint of debility and malaise SNOMED Code(s): 676150280 ICD Code: R53.81 - OTHER MALAISE Status: Acute Current Visit: Yes (7) Back pain SNOMED Code(s): 966875356 ICD Code: M54.9 - DORSALGIA, UNSPECIFIED Status: Chronic Current Visit: Yes Qualifiers: Back pain location: low back pain (8) Palliative care status SNOMED Code(s): 009390610 ICD Code: Z51.5 - ENCOUNTER FOR PALLIATIVE CARE Status: Acute Current Visit: Yes - Patient Summary/Data Consults: Consultations 06/21/17 08:17 PT Evaluation and Treatment [CONS] Routine Please Evaluate and Treat. PT Reason for Consult: Strengthening This query below is only for informational purposes and is not editable. Admission Diagnosis/Problem: Pneumonia Hospital Course: On admission she was started on IV antibiotics Levaquin renal dosing. Also steroid bursting IV. Respiratory therapy for dual notes and incentive spirometry. Blood cultures obtained in the been negative. She is required 5 L nasal cannula upon admission that weaned down to 3 however this is the further we can get. She did start to show clinical signs of improvement, with improving chest x-ray and overall feeling of well-being. With her renal insufficiency her electrolytes in the form of potassium did begin to climb and her lisinopril/ hydrochlorothiazide was put on hold. She was given a dose of Lasix to bring this down. We were never able to obtain a sputum culture. White count continues to climb as I had switched her over to oral Augmentin and prednisone per tapering. Status has not improved, and with increasing white count I did evaluate for possible pulmonary embolism as a cause for continued respiratory distress cough and no improvement with current cares. This was negative however. Did show extensive changes throughout the lung lopez consistent with worsening pulmonary fibrosis. Echocardiogram was also obtained this morning with results still pending to evaluate for possible failure and/or pulmonary hypertension. At this point, I feel she is in need of higher level of care with possible consultation with pulmonology, consideration for possible bronchoscopy , medication management in light of her renal function, and possibly infectious disease eval and recommendation. I do not have access to this here at my facility. I do believe additional eyes need to be laid upon the patient in order to get a clearer picture for disposition and further management. - Discharge Plan Home Medications: Home Meds Lisinopril/Hydrochlorothiazide [Lisinopril-Hctz 20-12.5 mg Tab] 1 tab PO DAILY 11/20/16 [History] Gabapentin [Neurontin] 300 mg PO TID 06/16/17 [History] Metoprolol Tartrate 12.5 mg PO BID 06/16/17 [History] - Discharge Summary/Plan Comment DC Time >30 min.: Yes Discharge Summary/Plan Comment: Discussed CT scan negative for PE but shows significant worsening of her chronic IPF. she is not improving with current cares and with her renal function will need to be further evaluated at a higher level of care for further evaluation and treatment with regards to her pulmonary function, renal function and disposition regarding specialty cares. I explained to her the chronicity of her disease state along with the complications and progression of disease in light of acute pulmonary disease (pneumonia/bronchitis/edema). She expresses understanding of this and wishes to be transferred to [facility] per my recommendation as she has family there. I have spoken with Dr. Con MD at [facility] and he was kind enough to accept Mrs Castillo for further assessment and management. I appreciate [employer] scouring train operator chief, Dr. Con MD and his team for the care they will provide this patient. Disposition is fair to poor. she will be transferred via ambulance due to chronic oxygen need, sob/dyspnea with exertion and need for continued IV fluids as she did receive IV contrast just prior for PE study. All films (Xray) , studies (swallow study), and todays echocardiogram will be pushed over to their PACs system. - General Info Date of Service: 06/21/17 Subjective Update: Patient stay remains short of breath on exertion still requiring 2-3 L of oxygen via nasal cannula. She is tolerating her diet. Having bowel movement. Urinating adequate amounts. She denies any headache vision change neck back or shoulder pain. She denies any tremulousness or subjective fevers/chills. She continues to have significant coughing spells which of Her up most been night. Nonproductive. She denies any chest pain other than when she coughs, denies chest pressure or palpitations. Denies any pain in her legs or calves. No swelling of the hands or face. She feels as though she is getting a little better but still fatigues easily and requires increase oxygen with any mild to moderate activity. I did switch her over to oral Augmentin and by mouth prednisone yesterday which she is tolerated. Her blood pressure is started to go up as I placed her lisinopril hydrochlorothiazide on hold secondary to her renal function. Labs today show increasing white count that could not be explained by simple steroid bursting. - Review of Systems Systems Review Comment: Please see subjective - Patient Data Vitals - Most Recent: Vital Signs (72 hours) 06/18/17 06/18/17 06/18/17 15:15 16:00 19:05 Temperature [ 98.1 F 97.7 F Oral] Pulse, Peripheral Pulse, 74 84 74 Peripheral [ Left Pulse Oximetry] Pulse, Peripheral [ Right Pulse Oximetry] Respiratory 18 18 Rate Blood Pressure Blood Pressure 138/60 109/47 L [Left Upper Arm ] Blood Pressure [Right Upper Arm] O2 Sat by Pulse 92 L 92 L Oximetry O2 Sat by Pulse 94 L Oximetry [ Nasal Cannula] 06/18/17 06/19/17 06/19/17 20:20 00:00 06:18 Temperature [ 97.9 F Oral] Pulse, 74 Peripheral Pulse, 72 Peripheral [ Left Pulse Oximetry] Pulse, Peripheral [ Right Pulse Oximetry] Respiratory 17 Rate Blood Pressure 109/47 L Blood Pressure [Left Upper Arm ] Blood Pressure 134/69 [Right Upper Arm] O2 Sat by Pulse 90 L 91 L Oximetry O2 Sat by Pulse Oximetry [ Nasal Cannula] 06/19/17 06/19/17 06/19/17 07:15 08:21 08:30 Temperature [ 98.0 F Oral] Pulse, 87 Peripheral Pulse, 82 87 Peripheral [ Left Pulse Oximetry] Pulse, Peripheral [ Right Pulse Oximetry] Respiratory 20 Rate Blood Pressure 127/46 L Blood Pressure [Left Upper Arm ] Blood Pressure 127/46 L [Right Upper Arm] O2 Sat by Pulse 90 L Oximetry O2 Sat by Pulse 90 L Oximetry [ Nasal Cannula] 06/19/17 06/19/17 06/19/17 10:50 15:10 16:25 Temperature [ 97.8 F Oral] Pulse, Peripheral Pulse, 88 78 82 Peripheral [ Left Pulse Oximetry] Pulse, Peripheral [ Right Pulse Oximetry] Respiratory 20 Rate Blood Pressure Blood Pressure [Left Upper Arm ] Blood Pressure 126/52 L [Right Upper Arm] O2 Sat by Pulse 88 L Oximetry O2 Sat by Pulse 95 93 L Oximetry [ Nasal Cannula] 06/19/17 06/19/17 06/20/17 21:00 21:09 01:50 Temperature [ 97.7 F 97.7 F Oral] Pulse, 84 Peripheral Pulse, 84 79 Peripheral [ Left Pulse Oximetry] Pulse, Peripheral [ Right Pulse Oximetry] Respiratory 20 19 Rate Blood Pressure 104/66 Blood Pressure 104/66 138/53 L [Left Upper Arm ] Blood Pressure [Right Upper Arm] O2 Sat by Pulse 91 L 91 L Oximetry O2 Sat by Pulse Oximetry [ Nasal Cannula] 06/20/17 06/20/17 06/20/17 06:00 06:30 08:00 Temperature [ 97.6 F Oral] Pulse, Peripheral Pulse, 70 Peripheral [ Left Pulse Oximetry] Pulse, Peripheral [ Right Pulse Oximetry] Respiratory 20 Rate Blood Pressure Blood Pressure [Left Upper Arm ] Blood Pressure 138/56 L [Right Upper Arm] O2 Sat by Pulse 96 93 L Oximetry O2 Sat by Pulse 96 Oximetry [ Nasal Cannula] 06/20/17 06/20/17 06/20/17 08:29 09:16 10:47 Temperature [ Oral] Pulse, 72 Peripheral Pulse, 69 80 Peripheral [ Left Pulse Oximetry] Pulse, Peripheral [ Right Pulse Oximetry] Respiratory Rate Blood Pressure 140/55 L Blood Pressure [Left Upper Arm ] Blood Pressure [Right Upper Arm] O2 Sat by Pulse Oximetry O2 Sat by Pulse 91 L 90 L Oximetry [ Nasal Cannula] 06/20/17 06/20/17 06/20/17 10:49 12:00 15:12 Temperature [ 98 F Oral] Pulse, Peripheral Pulse, 80 72 80 Peripheral [ Left Pulse Oximetry] Pulse, Peripheral [ Right Pulse Oximetry] Respiratory 20 Rate Blood Pressure Blood Pressure [Left Upper Arm ] Blood Pressure 116/44 L [Right Upper Arm] O2 Sat by Pulse 94 L Oximetry O2 Sat by Pulse 93 L Oximetry [ Nasal Cannula] 06/20/17 06/20/17 06/20/17 16:00 20:00 20:17 Temperature [ 97.7 F 97.8 F Oral] Pulse, 70 Peripheral Pulse, 74 70 Peripheral [ Left Pulse Oximetry] Pulse, Peripheral [ Right Pulse Oximetry] Respiratory 20 18 Rate Blood Pressure 137/49 L Blood Pressure 137/49 L [Left Upper Arm ] Blood Pressure 135/55 L [Right Upper Arm] O2 Sat by Pulse 94 L 90 L Oximetry O2 Sat by Pulse Oximetry [ Nasal Cannula] 06/20/17 06/21/17 06/21/17 20:50 00:00 04:00 Temperature [ 97.6 F 97.9 F Oral] Pulse, Peripheral Pulse, 86 Peripheral [ Left Pulse Oximetry] Pulse, 66 71 Peripheral [ Right Pulse Oximetry] Respiratory 18 18 Rate Blood Pressure Blood Pressure [Left Upper Arm ] Blood Pressure 121/43 L 136/52 L [Right Upper Arm] O2 Sat by Pulse 95 90 L Oximetry O2 Sat by Pulse 90 L Oximetry [ Nasal Cannula] 06/21/17 06/21/17 06/21/17 06:00 07:15 08:00 Temperature [ 97.9 F Oral] Pulse, Peripheral Pulse, 68 Peripheral [ Left Pulse Oximetry] Pulse, 88 Peripheral [ Right Pulse Oximetry] Respiratory 22 H Rate Blood Pressure Blood Pressure [Left Upper Arm ] Blood Pressure 146/57 H [Right Upper Arm] O2 Sat by Pulse 94 L 90 L Oximetry O2 Sat by Pulse Oximetry [ Nasal Cannula] 06/21/17 06/21/17 06/21/17 08:12 09:43 12:15 Temperature [ Oral] Pulse, 88 Peripheral Pulse, 78 Peripheral [ Left Pulse Oximetry] Pulse, 74 Peripheral [ Right Pulse Oximetry] Respiratory Rate Blood Pressure 146/57 H 146/57 H Blood Pressure [Left Upper Arm ] Blood Pressure [Right Upper Arm] O2 Sat by Pulse Oximetry O2 Sat by Pulse 91 L Oximetry [ Nasal Cannula] Weight - Most Recent: 91.354 kg I&O - Last 24 hours: Intake & Output 06/20/17 06/21/17 06/21/17 22:59 06:59 14:59 Intake Total 250 225 150 Output Total 850 750 250 Balance -600 -525 -100 Lab Results - Last 24 hrs: Laboratory Tests 06/16/17 06/16/17 06/16/17 Range/Units 11:50 11:50 11:50 WBC 11.3 (4.5-12.0) X10-3/uL RBC 4.22 (3.23-5.20) x10(6)uL Hgb 11.8 (11.5-15.5) g/dL Hct 34.6 (30.0-51.3) % MCV 82.0 (80-96) fL MCH 28.0 (27.7-33.6) pg MCHC 34.1 (32.2-35.4) g/dL RDW 14.4 (11.5-15.5) % Plt Count 289 (125-369) X10(3)uL MPV 9.2 (7.4-10.4) fL Neut % (Auto) 79.6 (46-82) % Lymph % (Auto) 8.7 L (13-37) % [place] % (Auto) 8.1 (4-12) % Eos % (Auto) 3 (1.0-5.0) % Baso % (Auto) 1 (0-2) % Neut # (Auto) 8.9 H (1.6-8.3) # Lymph # (Auto) 1.0 (0.6-5.0) # [place] # (Auto) 0.9 (0.0-1.3) # Eos # (Auto) 0.4 (0.0-0.8) # Baso # (Auto) 0.1 (0.0-0.2) # Add Manual Diff Neutrophils % (Manual) (46-82) % Band Neutrophils % (0-6) % Lymphocytes % (Manual) (13-37) % Monocytes % (Manual) (4-12) % ABG pH (7.35-7.45) ABG pCO2 (35-45) mmHg ABG pO2 (83-108) mmHg ABG HCO3 (22-26) mmol/L ABG O2 Saturation (96-97) % ABG Base Excess (-2-2) Altaf Test O2 Delivery Device Sodium 142 (135-145) mmol/L Potassium 3.8 (3.5-5.3) mmol/L Chloride 105 (100-110) mmol/L Carbon Dioxide 26 (21-32) mmol/L BUN 21 H (7-18) mg/dL Creatinine 1.2 H (0.55-1.02) mg/dL Est Cr Clr Drug Dosing 32.52 mL/min Estimated GFR (MDRD) 43 L (>60) BUN/Creatinine Ratio 17.5 (9-20) Glucose 108 (80-116) mg/dL Calcium 9.8 (8.6-10.2) mg/dL Total Bilirubin 0.6 (0.1-1.3) mg/dL AST 27 H (5-25) IU/L ALT 23 (12-36) U/L Alkaline Phosphatase 105 (56-112) IU/L NT-Pro-B Natriuret Pep 485 H (<=450) pg/mL Total Protein 7.4 (6.0-8.0) g/dL Albumin 3.1 L (3.2-4.6) g/dL Globulin 4.3 g/dL Albumin/Globulin Ratio 0.7 Urine Color (YELLOW) Urine Appearance (CLEAR) Urine pH (5.0-6.5) Ur Specific [place] (1.010-1.025) Urine Protein (NEGATIVE) mg/dL Urine Glucose (UA) (NEGATIVE) mg/dL Urine Ketones (NEGATIVE) mg/dL Urine Occult Blood (NEGATIVE) Urine Nitrite (NEGATIVE) Urine Bilirubin (NEGATIVE) Urine Urobilinogen (NEGATIVE) mg/dL Ur Leukocyte Esterase (NEGATIVE) Urine WBC (0) Ur Squamous Epith Cells (NS,R,O) Urine Bacteria (NS) 06/16/17 06/17/17 06/17/17 Range/Units 20:30 07:00 07:00 WBC 9.3 (4.5-12.0) X10-3/uL RBC 3.89 (3.23-5.20) x10(6)uL Hgb 10.8 L (11.5-15.5) g/dL Hct 32.0 (30.0-51.3) % MCV 82.2 (80-96) fL MCH 27.6 L (27.7-33.6) pg MCHC 33.6 (32.2-35.4) g/dL RDW 14.4 (11.5-15.5) % Plt Count 285 (125-369) X10(3)uL MPV 9.1 (7.4-10.4) fL Neut % (Auto) 67.0 (46-82) % Lymph % (Auto) 15.6 (13-37) % [place] % (Auto) 11.1 (4-12) % Eos % (Auto) 6 H (1.0-5.0) % Baso % (Auto) 1 (0-2) % Neut # (Auto) 6.4 (1.6-8.3) # Lymph # (Auto) 1.4 (0.6-5.0) # [place] # (Auto) 1.0 (0.0-1.3) # Eos # (Auto) 0.5 (0.0-0.8) # Baso # (Auto) 0.0 (0.0-0.2) # Add Manual Diff Neutrophils % (Manual) (46-82) % Band Neutrophils % (0-6) % Lymphocytes % (Manual) (13-37) % Monocytes % (Manual) (4-12) % ABG pH (7.35-7.45) ABG pCO2 (35-45) mmHg ABG pO2 (83-108) mmHg ABG HCO3 (22-26) mmol/L ABG O2 Saturation (96-97) % ABG Base Excess (-2-2) Altaf Test O2 Delivery Device Sodium 140 (135-145) mmol/L Potassium 3.9 (3.5-5.3) mmol/L Chloride 105 (100-110) mmol/L Carbon Dioxide 27 (21-32) mmol/L BUN 16 (7-18) mg/dL Creatinine 1.2 H (0.55-1.02) mg/dL Est Cr Clr Drug Dosing 32.52 mL/min Estimated GFR (MDRD) 43 L (>60) BUN/Creatinine Ratio 13.3 (9-20) Glucose 116 (80-116) mg/dL Calcium 9.2 (8.6-10.2) mg/dL Total Bilirubin (0.1-1.3) mg/dL AST (5-25) IU/L ALT (12-36) U/L Alkaline Phosphatase (56-112) IU/L NT-Pro-B Natriuret Pep 551 H (<=450) pg/mL Total Protein (6.0-8.0) g/dL Albumin (3.2-4.6) g/dL Globulin g/dL Albumin/Globulin Ratio Urine Color (YELLOW) Urine Appearance (CLEAR) Urine pH (5.0-6.5) Ur Specific [place] (1.010-1.025) Urine Protein (NEGATIVE) mg/dL Urine Glucose (UA) (NEGATIVE) mg/dL Urine Ketones (NEGATIVE) mg/dL Urine Occult Blood (NEGATIVE) Urine Nitrite (NEGATIVE) Urine Bilirubin (NEGATIVE) Urine Urobilinogen (NEGATIVE) mg/dL Ur Leukocyte Esterase (NEGATIVE) Urine WBC (0) Ur Squamous Epith Cells (NS,R,O) Urine Bacteria (NS) 06/19/17 06/19/17 06/19/17 Range/Units 06:20 06:20 06:20 WBC 15.7 H (4.5-12.0) X10-3/uL RBC 3.87 (3.23-5.20) x10(6)uL Hgb 10.5 L (11.5-15.5) g/dL Hct 32.1 (30.0-51.3) % MCV 82.8 (80-96) fL MCH 27.1 L (27.7-33.6) pg MCHC 32.7 (32.2-35.4) g/dL RDW 14.8 (11.5-15.5) % Plt Count 274 (125-369) X10(3)uL MPV 10.3 (7.4-10.4) fL Neut % (Auto) (46-82) % Lymph % (Auto) (13-37) % [place] % (Auto) (4-12) % Eos % (Auto) (1.0-5.0) % Baso % (Auto) (0-2) % Neut # (Auto) (1.6-8.3) # Lymph # (Auto) (0.6-5.0) # [place] # (Auto) (0.0-1.3) # Eos # (Auto) (0.0-0.8) # Baso # (Auto) (0.0-0.2) # Add Manual Diff Yes Neutrophils % (Manual) 96 H (46-82) % Band Neutrophils % (0-6) % Lymphocytes % (Manual) 4 L (13-37) % Monocytes % (Manual) (4-12) % ABG pH (7.35-7.45) ABG pCO2 (35-45) mmHg ABG pO2 (83-108) mmHg ABG HCO3 (22-26) mmol/L ABG O2 Saturation (96-97) % ABG Base Excess (-2-2) Altaf Test O2 Delivery Device Sodium 138 (135-145) mmol/L Potassium 5.1 D (3.5-5.3) mmol/L Chloride 103 (100-110) mmol/L Carbon Dioxide 22 (21-32) mmol/L BUN 39 H D (7-18) mg/dL Creatinine 1.5 H (0.55-1.02) mg/dL Est Cr Clr Drug Dosing 26.02 mL/min Estimated GFR (MDRD) 33 L (>60) BUN/Creatinine Ratio 26.0 H (9-20) Glucose 210 H D (80-116) mg/dL Calcium 9.4 (8.6-10.2) mg/dL Total Bilirubin (0.1-1.3) mg/dL AST (5-25) IU/L ALT (12-36) U/L Alkaline Phosphatase (56-112) IU/L NT-Pro-B Natriuret Pep 554 H (<=450) pg/mL Total Protein (6.0-8.0) g/dL Albumin (3.2-4.6) g/dL Globulin g/dL Albumin/Globulin Ratio Urine Color (YELLOW) Urine Appearance (CLEAR) Urine pH (5.0-6.5) Ur Specific [place] (1.010-1.025) Urine Protein (NEGATIVE) mg/dL Urine Glucose (UA) (NEGATIVE) mg/dL Urine Ketones (NEGATIVE) mg/dL Urine Occult Blood (NEGATIVE) Urine Nitrite (NEGATIVE) Urine Bilirubin (NEGATIVE) Urine Urobilinogen (NEGATIVE) mg/dL Ur Leukocyte Esterase (NEGATIVE) Urine WBC (0) Ur Squamous Epith Cells (NS,R,O) Urine Bacteria (NS) 06/19/17 06/20/17 06/20/17 Range/Units 15:00 06:07 06:07 WBC 19.4 H (4.5-12.0) X10-3/uL RBC 4.02 (3.23-5.20) x10(6)uL Hgb 11.0 L (11.5-15.5) g/dL Hct 32.8 (30.0-51.3) % MCV 81.7 (80-96) fL MCH 27.3 L (27.7-33.6) pg MCHC 33.5 (32.2-35.4) g/dL RDW 15.0 (11.5-15.5) % Plt Count 350 (125-369) X10(3)uL MPV 9.7 (7.4-10.4) fL Neut % (Auto) (46-82) % Lymph % (Auto) (13-37) % [place] % (Auto) (4-12) % Eos % (Auto) (1.0-5.0) % Baso % (Auto) (0-2) % Neut # (Auto) (1.6-8.3) # Lymph # (Auto) (0.6-5.0) # [place] # (Auto) (0.0-1.3) # Eos # (Auto) (0.0-0.8) # Baso # (Auto) (0.0-0.2) # Add Manual Diff Yes Neutrophils % (Manual) 90 H (46-82) % Band Neutrophils % 2 (0-6) % Lymphocytes % (Manual) 6 L (13-37) % Monocytes % (Manual) 2 L (4-12) % ABG pH (7.35-7.45) ABG pCO2 (35-45) mmHg ABG pO2 (83-108) mmHg ABG HCO3 (22-26) mmol/L ABG O2 Saturation (96-97) % ABG Base Excess (-2-2) Altaf Test O2 Delivery Device Sodium 135 138 (135-145) mmol/L Potassium 4.9 4.7 (3.5-5.3) mmol/L Chloride 99 L 103 (100-110) mmol/L Carbon Dioxide 24 24 (21-32) mmol/L BUN 45 H 50 H (7-18) mg/dL Creatinine 1.7 H 1.7 H (0.55-1.02) mg/dL Est Cr Clr Drug Dosing 22.96 22.96 mL/min Estimated GFR (MDRD) 29 L 29 L (>60) BUN/Creatinine Ratio 26.5 H 29.4 H (9-20) Glucose 228 H 221 H (80-116) mg/dL Calcium 9.6 9.4 (8.6-10.2) mg/dL Total Bilirubin (0.1-1.3) mg/dL AST (5-25) IU/L ALT (12-36) U/L Alkaline Phosphatase (56-112) IU/L NT-Pro-B Natriuret Pep (<=450) pg/mL Total Protein (6.0-8.0) g/dL Albumin (3.2-4.6) g/dL Globulin g/dL Albumin/Globulin Ratio Urine Color (YELLOW) Urine Appearance (CLEAR) Urine pH (5.0-6.5) Ur Specific [place] (1.010-1.025) Urine Protein (NEGATIVE) mg/dL Urine Glucose (UA) (NEGATIVE) mg/dL Urine Ketones (NEGATIVE) mg/dL Urine Occult Blood (NEGATIVE) Urine Nitrite (NEGATIVE) Urine Bilirubin (NEGATIVE) Urine Urobilinogen (NEGATIVE) mg/dL Ur Leukocyte Esterase (NEGATIVE) Urine WBC (0) Ur Squamous Epith Cells (NS,R,O) Urine Bacteria (NS) 06/20/17 06/21/17 06/21/17 Range/Units 12:25 08:40 08:40 WBC 21.3 H (4.5-12.0) X10-3/uL RBC 4.27 (3.23-5.20) x10(6)uL Hgb 11.2 L (11.5-15.5) g/dL Hct 34.9 (30.0-51.3) % MCV 81.6 (80-96) fL MCH 26.2 L (27.7-33.6) pg MCHC 32.2 (32.2-35.4) g/dL RDW 14.9 (11.5-15.5) % Plt Count 387 H (125-369) X10(3)uL MPV 9.6 (7.4-10.4) fL Neut % (Auto) (46-82) % Lymph % (Auto) (13-37) % [place] % (Auto) (4-12) % Eos % (Auto) (1.0-5.0) % Baso % (Auto) (0-2) % Neut # (Auto) (1.6-8.3) # Lymph # (Auto) (0.6-5.0) # [place] # (Auto) (0.0-1.3) # Eos # (Auto) (0.0-0.8) # Baso # (Auto) (0.0-0.2) # Add Manual Diff Yes Neutrophils % (Manual) 81 (46-82) % Band Neutrophils % (0-6) % Lymphocytes % (Manual) 11 L (13-37) % Monocytes % (Manual) 8 (4-12) % ABG pH (7.35-7.45) ABG pCO2 (35-45) mmHg ABG pO2 (83-108) mmHg ABG HCO3 (22-26) mmol/L ABG O2 Saturation (96-97) % ABG Base Excess (-2-2) Altaf Test O2 Delivery Device Sodium 141 (135-145) mmol/L Potassium 4.1 (3.5-5.3) mmol/L Chloride 105 (100-110) mmol/L Carbon Dioxide 22 (21-32) mmol/L BUN 49 H (7-18) mg/dL Creatinine 1.6 H (0.55-1.02) mg/dL Est Cr Clr Drug Dosing 24.39 mL/min Estimated GFR (MDRD) 31 L (>60) BUN/Creatinine Ratio 30.6 H (9-20) Glucose 202 H (80-116) mg/dL Calcium 9.3 (8.6-10.2) mg/dL Total Bilirubin 0.6 (0.1-1.3) mg/dL AST 48 H D (5-25) IU/L ALT 39 H D (12-36) U/L Alkaline Phosphatase 99 (56-112) IU/L NT-Pro-B Natriuret Pep (<=450) pg/mL Total Protein 7.0 (6.0-8.0) g/dL Albumin 3.2 (3.2-4.6) g/dL Globulin 3.8 g/dL Albumin/Globulin Ratio 0.8 Urine Color Yellow (YELLOW) Urine Appearance Slightly cloudy (CLEAR) Urine pH 5.0 (5.0-6.5) Ur Specific [place] 1.015 (1.010-1.025) Urine Protein Negative (NEGATIVE) mg/dL Urine Glucose (UA) Normal (NEGATIVE) mg/dL Urine Ketones Negative (NEGATIVE) mg/dL Urine Occult Blood Negative (NEGATIVE) Urine Nitrite Negative (NEGATIVE) Urine Bilirubin Negative (NEGATIVE) Urine Urobilinogen Normal (NEGATIVE) mg/dL Ur Leukocyte Esterase Negative (NEGATIVE) Urine WBC 0-5 (0) Ur Squamous Epith Cells Few H (NS,R,O) Urine Bacteria Few H (NS) 06/21/17 Range/Units 08:46 WBC (4.5-12.0) X10-3/uL RBC (3.23-5.20) x10(6)uL Hgb (11.5-15.5) g/dL Hct (30.0-51.3) % MCV (80-96) fL MCH (27.7-33.6) pg MCHC (32.2-35.4) g/dL RDW (11.5-15.5) % Plt Count (125-369) X10(3)uL MPV (7.4-10.4) fL Neut % (Auto) (46-82) % Lymph % (Auto) (13-37) % [place] % (Auto) (4-12) % Eos % (Auto) (1.0-5.0) % Baso % (Auto) (0-2) % Neut # (Auto) (1.6-8.3) # Lymph # (Auto) (0.6-5.0) # [place] # (Auto) (0.0-1.3) # Eos # (Auto) (0.0-0.8) # Baso # (Auto) (0.0-0.2) # Add Manual Diff Neutrophils % (Manual) (46-82) % Band Neutrophils % (0-6) % Lymphocytes % (Manual) (13-37) % Monocytes % (Manual) (4-12) % ABG pH 7.38 (7.35-7.45) ABG pCO2 37 (35-45) mmHg ABG pO2 76 L (83-108) mmHg ABG HCO3 22 (22-26) mmol/L ABG O2 Saturation 95 L (96-97) % ABG Base Excess -2.6 L (-2-2) [place] Test Passed O2 Delivery Device Nasal cannula Sodium (135-145) mmol/L Potassium (3.5-5.3) mmol/L Chloride (100-110) mmol/L Carbon Dioxide (21-32) mmol/L BUN (7-18) mg/dL Creatinine (0.55-1.02) mg/dL Est Cr Clr Drug Dosing mL/min Estimated GFR (MDRD) (>60) BUN/Creatinine Ratio (9-20) Glucose (80-116) mg/dL Calcium (8.6-10.2) mg/dL Total Bilirubin (0.1-1.3) mg/dL AST (5-25) IU/L ALT (12-36) U/L Alkaline Phosphatase (56-112) IU/L NT-Pro-B Natriuret Pep (<=450) pg/mL Total Protein (6.0-8.0) g/dL Albumin (3.2-4.6) g/dL Globulin g/dL Albumin/Globulin Ratio Urine Color (YELLOW) Urine Appearance (CLEAR) Urine pH (5.0-6.5) Ur Specific [place] (1.010-1.025) Urine Protein (NEGATIVE) mg/dL Urine Glucose (UA) (NEGATIVE) mg/dL Urine Ketones (NEGATIVE) mg/dL Urine Occult Blood (NEGATIVE) Urine Nitrite (NEGATIVE) Urine Bilirubin (NEGATIVE) Urine Urobilinogen (NEGATIVE) mg/dL Ur Leukocyte Esterase (NEGATIVE) Urine WBC (0) Ur Squamous Epith Cells (NS,R,O) Urine Bacteria (NS) CRISTIANE Results - Last 24 hrs: Microbiology 06/16/17 11:45 Blood Aerobic Blood Culture - Final NO GROWTH AFTER 5 DAYS 06/16/17 11:45 Blood Anaerobic Blood Culture - Final NO GROWTH AFTER 5 DAYS 06/16/17 11:50 Blood Aerobic Blood Culture - Final NO GROWTH AFTER 5 DAYS 06/16/17 11:50 Blood Anaerobic Blood Culture - Final NO GROWTH AFTER 5 DAYS 06/16/17 15:29 Nasopharyngeal Swab - Nare, Left Influenza Type A Antigen Screen - Final NEGATIVE INFLUENZA A VIRUS AG 06/16/17 15:29 Nasopharyngeal Swab - Nare, Left Influenza Type B Antigen Screen - Final NEGATIVE INFLUENZA B VIRUS AG Med Orders - Current: Current Medications Acetaminophen (Tylenol) 650 mg PO Q4H PRN PRN Reason: Pain (Mild 1-3)/fever Last Admin: 06/19/17 21:16 Dose: 650 mg Albuterol/Ipratropium (Duoneb 3.0-0.5 Mg/3 Ml) 3 ml NEB QIDRT [facility] Last Admin: 06/21/17 11:56 Dose: 3 ml Amoxicillin/Clavulanate Potassium (Augmentin 500 Mg\125 Mg) 1 tab PO Q12H [facility] Last Admin: 06/21/17 08:10 Dose: 1 tab Benzonatate (Tessalon Perles) 200 mg PO BID [facility] Last Admin: 06/21/17 08:11 Dose: 200 mg Enoxaparin Sodium (Lovenox) 30 mg SUBCUT Q24H [facility] Last Admin: 06/20/17 13:11 Dose: 30 mg Gabapentin (Neurontin) 300 mg PO TID [facility] Last Admin: 06/21/17 08:10 Dose: 300 mg Lisinopril/HCTZ (Lisinopril/Hctz 20-12.5 Mg) 1 tab PO DAILY [facility] Last Admin: 06/21/17 09:43 Dose: 1 tab Metoprolol Tartrate (Lopressor) 12.5 mg PO BID [facility] Last Admin: 06/21/17 08:12 Dose: 12.5 mg Pantoprazole Sodium (Protonix Iv) 40 mg IVPUSH Q24H [facility] Last Admin: 06/20/17 13:14 Dose: 40 mg Prednisone (Prednisone) 60 mg PO WITHBREAKFAST [facility] Last Admin: 06/21/17 08:11 Dose: 60 mg Sodium Chloride (Saline Flush) 10 ml FLUSH ASDIRECTED PRN PRN Reason: Keep Vein Open Last Admin: 06/20/17 13:23 Dose: 10 ml Zolpidem Tartrate (Ambien) 5 mg PO BEDTIME PRN PRN Reason: Sleep Discontinued Medications Benzonatate (Tessalon Perles) 200 mg PO BID PRN PRN Reason: Cough Enoxaparin Sodium (Lovenox) 40 mg SUBCUT Q24H [facility] Last Admin: 06/19/17 13:06 Dose: 40 mg Furosemide (Lasix) 20 mg IVPUSH ONETIME ONE Stop: 06/19/17 10:33 Last Admin: 06/19/17 10:57 Dose: 20 mg Levofloxacin/Dextrose 750 mg/ (Premix) 150 mls @ 100 mls/hr IV Q48H [facility] Stop: 06/24/17 14:29 Last Admin: 06/18/17 13:05 Dose: 100 mls/hr Potassium Chloride/Dextrose/Sod Cl (D5 1/2 Ns W/ 20 Meq/L Kcl) 1,000 mls @ 125 mls/hr IV Q8H [facility] Last Admin: 06/16/17 13:21 Dose: 125 mls/hr Sodium Chloride (Normal Saline) 500 mls @ 500 mls/hr IV ONETIME ONE Stop: 06/21/17 11:29 Last Admin: 06/21/17 10:31 Dose: 500 mls/hr Iopamidol (Isovue-370 (76%)) 75 ml IV ONETIME ONE Stop: 06/21/17 11:38 Last Admin: 06/21/17 11:51 Dose: 75 ml Methylprednisolone Sodium Succinate (Solu-Medrol) 125 mg IV NOW ONE Stop: 06/17/17 09:29 Last Admin: 06/17/17 10:34 Dose: 125 mg Methylprednisolone Sodium Succinate (Solu-Medrol) 62.5 mg IVPUSH Q6H [facility] Last Admin: 06/19/17 08:28 Dose: 62.5 mg Methylprednisolone Sodium Succinate (Solu-Medrol) 62.5 mg IVPUSH Q12H [facility] Last Admin: 06/19/17 21:21 Dose: 62.5 mg - Exam Physical Findings Comments:: Quality Assessment: Supplemental Oxygen, 2L NC General: Alert, Oriented, Cooperative, no Distress, frequent coughing HEENT: Conjunctiva Clear, Nares Patent, Glasses. Neck: Supple, Trachea Midline. No: Lymphadenopathy, JVD Lungs: Improving Breath Sounds throughout, Crackles (Crackles bilateral lower and mid bases. Coarse. No rhonchi. No stridor. expiratory wheezes absent today. Cardiovascular: Regular Rate, Regular Rhythm, Normal S1, Normal S2 GI/Abdominal Exam: Normal Bowel Sounds, Soft, Non-Tender Extremities: Non-Tender, Normal Capillary Refill, Pedal Edema trace. No: Joint Swelling, Burak's Sign, Leg Pain, Increased Warmth Skin: Warm, Dry. No: Rash, Petechia, Ecchymosis Neurological: Normal Speech. No: Focal Deficit Psychiatric: Normal Affect, Normal Mood.No: Anxious. forgetful in the mornings. *Q Meaningful Use (DIS) - VTE *Q VTE Criteria *Q: - Stroke *Q Stroke Criteria *Q: - AMI *Q AMI Criteria *Q:
[2017-06-21] MEDS: Enoxaparin 30 MG/0.3 ML Syringe SUBCUT SCH (13:32)
[2017-06-21] MEDS: Pantoprazole 40 MG Vial IVPUSH SCH (13:32)
[2017-06-21] MEDS ORDERED: Sodium Chloride 0.9% 1,000 ML IV SCH (13:45)
--- NOTE | 2017-06-21 13:52 | CT ---
INDICATION: Pneumonia and respiratory distress, not improving. COMPUTERIZED TOMOGRAPHY ANGIOGRAPHY OF THE CHEST FOR PULMONARY ARTERIES: Spiral 1.25 mm axial images were obtained through the chest with 75 mL Isovue 370 at 3 mL/second with sagittal and coronal reconstructions on 06/21/2017. Findings are compared with 10/11/2014. Total exam DLP = 759.44 mGy-cm. What appear to be areas of patchy infiltration are noted scattered throughout the lungs, becoming most prominent in the lower lung lopez. Evidence of lobar emphysema is also noted. Minimal pleural effusion - reaction is noted at the right lower lung field. There is appearance of chronic inflammatory disease with probable bronchiectasis , which is significantly more prominent - significantly more severe than on the previous examination. While a definite nodular mass is not identified, it is difficult to exclude less than solid areas of neoplasia. Mediastinal lymphadenopathy is mild and similar to the previous examination, likely due to previous inflammatory disease. The heart appears slightly enlarged with coronary artery calcifications. The adrenal glands appeared unremarkable. Calcifications are noted in the aorta. No evidence of pulmonary emboli could be identified. IMPRESSION: 1. No evidence of pulmonary emboli. 2. Widespread patchy areas of infiltrate scattered throughout the lungs, compatible with aspiration pneumonia - correlate clinically. 3. Probable lobar emphysema. 4. Chronic inflammatory disease with bronchiectasis in the lung bases and to a lesser extent lower middle lung lopez. 5. ASD/ASHD. Report was called to Dr. Madden at 1206 hours on 06/21/2017. MTDD
[2017-06-21 15:00] VITALS: BP 145/58
== END 2017-06-21 14:57 | DRG 195 ==
LOC: FB.MS 10:06
PROVIDERS: ADMIT Family Medicine; ATTEND Family Medicine
DX: J18.9 Pneumonia, unspecified organism (principal); R06.03 Acute respiratory distress; R09.02 Hypoxemia; R53.81 Other malaise; I10 Essential (primary) hypertension; H54.7 Unspecified visual loss; M54.9 Dorsalgia, unspecified; G89.29 Other chronic pain; Z88.1 Allergy status to other antibiotic agents; Z91.030 Bee allergy status; J98.01 Acute bronchospasm; Z51.5 Encounter for palliative care; N28.9 Disorder of kidney and ureter, unspecified; J84.112 Idiopathic pulmonary fibrosis
CPT/HCPCS: 36415; 36600; 71046; 71275; 74230; 80048; 80053; 81001; 82803; 83880; 85025; 87040; 87804; 92611-GN; 93306; 94150; 94640; A9270-GY; C9113; J1650; J1940; J1956; J2930; J3480; J7030; J7050; J7620; Q9967